=== PATIENT | female | born 1950 | race Asian ===

== ENCOUNTER → 2016-07-21 | Outpatient (CLI) | payer MEDICARE, MEDICAID ==
[~2016-07-21] MED LIST: PRD10T PO; PRD20T PO
--- NOTE | 2016-07-25 09:23 | Diagnostic Imaging Report ---
Bilateral screening mammogram The current study was also evaluated with a Computer Aided Detection (CAD) system. Indication: Screening. No current complaints stated on the questionnaire. COMPARISON: 04/28/15 FINDINGS: The breasts are composed of heterogeneously dense parenchyma which may decrease mammographic sensitivity. Biopsy clip is seen in the right breast with adjacent stable calcification which could be dystrophic at the site of biopsy changes. The left breast appears stable. IMPRESSION: Stable mammographic findings. ACR BI-RADS Category 2: Benign findings. Result letter will be mailed to the patient. Note: At least 10% of breast cancer is not imaged by mammography. Dictated by: Dictated on workstation # [id number]
== END ==
LOC: RAD 09:41
PROVIDERS: ATTEND Nurse Practitioner Family
DX: Z12.31 Encounter for screening mammogram for malignant neoplasm of breast (principal)

== ENCOUNTER 2017-06-25 05:52 | Outpatient (CLI) | payer MEDICARE, MEDICAID ==
[~2017-06-25] VITALS: Ht 152.4 cm; Wt 60.8 kg
== END 2017-06-25 11:56 ==
LOC: PREOP 05:52
PROVIDERS: ATTEND Surgery
DX: Z01.818 Encounter for other preprocedural examination (principal); Z12.11 Encounter for screening for malignant neoplasm of colon

== ENCOUNTER 2017-06-29 11:58 | Day surgery (SDC) | payer MEDICARE, MEDICAID ==
[~2017-06-29] VITALS: Ht 152.4 cm; Wt 60.8 kg
[2017-06-29] MEDS ORDERED: NS IV 500 ML 500 ML IV PRN (12:03)
--- OUTSIDE RECORDS SUMMARY | 2017-06-29 12:04 | XMS REPORT | Continuity of Care Document ---
Author Author [facility] Address Unknown Phone Unavailable Allergies Active Description Code Type Severity Reaction Onset Reported/Identified Relationship to Patient Clinical Status Yes No Known Drug Allergies [id number] Drug Allergy Unknown N/A 06/25/2017 Medications There is no data. Problems Date Dx Coded Attending Type Code Diagnosis Diagnosed By 06/27/2008 723.1 PAIN NECK 06/27/2008 723.1 PAIN NECK 06/27/2008 723.1 PAIN NECK 06/27/2008 723.1 PAIN NECK 06/27/2008 FISH JENKINS MD 723.1 PAIN NECK 06/27/2008 TERRI DICKEY APRN N 723.1 PAIN NECK 06/27/2008 ZOHREH REID DOA K 723.1 PAIN NECK 06/27/2008 ZOHREH REID DOA K 723.1 PAIN NECK 06/27/2008 FISH JENKINS MD 723.1 PAIN NECK 06/27/2008 TAMMIE ESTEVEZ APRN 723.1 PAIN NECK 06/27/2008 REID DO SKYE K 723.1 PAIN NECK 06/27/2008 TORO MCNEIL, CLAUDIO L 723.1 PAIN NECK 06/27/2008 TORO MCNEIL, CLAUDIO L 723.1 PAIN NECK 06/27/2008 INO SEGAL APRN 723.1 PAIN NECK 06/27/2008 MADL SOCCER BALL ASSEMBLER, CLAUDIO L 723.1 PAIN NECK 06/27/2008 MADL SOCCER BALL ASSEMBLER, CLAUDIO L 723.1 PAIN NECK 06/27/2008 MADL SOCCER BALL ASSEMBLER, CLAUDIO L 723.1 PAIN NECK 06/27/2008 MADL SOCCER BALL ASSEMBLER, CLAUDIO L 723.1 PAIN NECK 09/15/2008 692.9 CONTACT DERMATITIS 09/15/2008 692.9 CONTACT DERMATITIS 09/15/2008 692.9 CONTACT DERMATITIS 09/15/2008 692.9 CONTACT DERMATITIS 09/15/2008 FISH JENKINS MD 692.9 CONTACT DERMATITIS 09/15/2008 WILLA HINOJOSA SOCCER BALL ASSEMBLER, TERRI N 692.9 CONTACT DERMATITIS 09/15/2008 REID DO, SKYE K 692.9 CONTACT DERMATITIS 09/15/2008 REID DO, SKYE K 692.9 CONTACT DERMATITIS 09/15/2008 FISH JENKINS MD 692.9 CONTACT DERMATITIS 09/15/2008 ZENAIDA SOCCER BALL ASSEMBLER, TAMMIE A 692.9 CONTACT DERMATITIS 09/15/2008 REID DO, SKYE K 692.9 CONTACT DERMATITIS 09/15/2008 MADL SOCCER BALL ASSEMBLER, CLAUDIO L 692.9 CONTACT DERMATITIS 09/15/2008 MADL SOCCER BALL ASSEMBLER, CLAUDIO L 692.9 CONTACT DERMATITIS 09/15/2008 PHILIPP SOCCER BALL ASSEMBLER, INO T 692.9 CONTACT DERMATITIS 09/15/2008 MADL SOCCER BALL ASSEMBLER, CLAUDIO L 692.9 CONTACT DERMATITIS 09/15/2008 MADL SOCCER BALL ASSEMBLER, CLAUDIO L 692.9 CONTACT DERMATITIS 09/15/2008 MADL SOCCER BALL ASSEMBLER, CLAUDIO L 692.9 CONTACT DERMATITIS 09/15/2008 MADL SOCCER BALL ASSEMBLER, CLAUDIO L 692.9 CONTACT DERMATITIS 09/21/2008 272.1 HYPERLIPOPROTEINEMIA TYPE IV 09/21/2008 272.4 HYPERLIPIDEMIA HYPERLIPOPROTEINEMIAS (Old Classification) 09/21/2008 272.1 HYPERLIPOPROTEINEMIA TYPE IV 09/21/2008 272.4 HYPERLIPIDEMIA HYPERLIPOPROTEINEMIAS (Old Classification) 09/21/2008 272.1 HYPERLIPOPROTEINEMIA TYPE IV 09/21/2008 272.4 HYPERLIPIDEMIA HYPERLIPOPROTEINEMIAS (Old Classification) 09/21/2008 272.1 HYPERLIPOPROTEINEMIA TYPE IV 09/21/2008 272.4 HYPERLIPIDEMIA HYPERLIPOPROTEINEMIAS (Old Classification) 09/21/2008 FISH JENKINS MD 272.1 HYPERLIPOPROTEINEMIA TYPE IV 09/21/2008 FISH JENKINS MD 272.4 HYPERLIPIDEMIA 09/21/2008 TERRI DICKEY APRN N 272.1 HYPERLIPOPROTEINEMIA TYPE IV 09/21/2008 TERRI DICKEY APRN N 272.4 HYPERLIPIDEMIA 09/21/2008 REID DO, SKYE K 272.1 HYPERLIPOPROTEINEMIA TYPE IV 09/21/2008 REID DO, SKYE K 272.4 HYPERLIPIDEMIA 09/21/2008 REID DO, SKYE K 272.1 HYPERLIPOPROTEINEMIA TYPE IV 09/21/2008 RIED DO, SKYE K 272.4 HYPERLIPIDEMIA 09/21/2008 FISH JENKINS MD 272.1 HYPERLIPOPROTEINEMIA TYPE IV 09/21/2008 FISH JENKINS MD 272.4 HYPERLIPIDEMIA 09/21/2008 ZENAIDA SOCCER BALL ASSEMBLER, TAMMIE A 272.1 HYPERLIPOPROTEINEMIA TYPE IV 09/21/2008 ZENAIDA SOCCER BALL ASSEMBLER, TAMMIE A 272.4 HYPERLIPIDEMIA 09/21/2008 REID DO, SKYE K 272.1 HYPERLIPOPROTEINEMIA TYPE IV 09/21/2008 REID DO, SKYE K 272.4 HYPERLIPIDEMIA 09/21/2008 MADL SOCCER BALL ASSEMBLER, CLAUDIO L 272.1 HYPERLIPOPROTEINEMIA TYPE IV 09/21/2008 MADL SOCCER BALL ASSEMBLER, CLAUDIO L 272.4 HYPERLIPIDEMIA 09/21/2008 MADL SOCCER BALL ASSEMBLER, CLAUDIO L 272.1 HYPERLIPOPROTEINEMIA TYPE IV 09/21/2008 MADL SOCCER BALL ASSEMBLER, CLAUDIO L 272.4 HYPERLIPIDEMIA 09/21/2008 PHILIPP MCNEIL INO T 272.1 HYPERLIPOPROTEINEMIA TYPE IV 09/21/2008 PHILIPP MCNEIL INO T 272.4 HYPERLIPIDEMIA 09/21/2008 MADL SOCCER BALL ASSEMBLER, CLAUDIO L 272.1 HYPERLIPOPROTEINEMIA TYPE IV 09/21/2008 MADL SOCCER BALL ASSEMBLER, CLAUDIO L 272.4 HYPERLIPIDEMIA 09/21/2008 MADL SOCCER BALL ASSEMBLER, CLADUIO L 272.1 HYPERLIPOPROTEINEMIA TYPE IV 09/21/2008 MADL SOCCER BALL ASSEMBLER, CLAUDIO L 272.4 HYPERLIPIDEMIA 09/21/2008 MADL SOCCER BALL ASSEMBLER, CLAUDIO L 272.1 HYPERLIPOPROTEINEMIA TYPE IV 09/21/2008 MADL SOCCER BALL ASSEMBLER, CLAUDIO L 272.4 HYPERLIPIDEMIA 09/21/2008 MADL SOCCER BALL ASSEMBLER, CLAUDIO L 272.1 HYPERLIPOPROTEINEMIA TYPE IV 09/21/2008 MADL SOCCER BALL ASSEMBLER, CLAUDIO L 272.4 HYPERLIPIDEMIA 03/08/2009 536.8 DYSPEPSIA AND OTHER SPECIFIED DISORDERS OF FUNCTION OF STOMACH 03/08/2009 536.8 DYSPEPSIA AND OTHER SPECIFIED DISORDERS OF FUNCTION OF STOMACH 03/08/2009 536.8 DYSPEPSIA AND OTHER SPECIFIED DISORDERS OF FUNCTION OF STOMACH 03/08/2009 536.8 DYSPEPSIA AND OTHER SPECIFIED DISORDERS OF FUNCTION OF STOMACH 03/08/2009 FISH JENKINS MD 536.8 DYSPEPSIA AND OTHER SPECIFIED DISORDERS OF FUNCTION OF STOMACH 03/08/2009 CROUCHTERRI HALE APRN 536.8 DYSPEPSIA AND OTHER SPECIFIED DISORDERS OF FUNCTION OF STOMACH 03/08/2009 REID DO SKYE K 536.8 DYSPEPSIA AND OTHER SPECIFIED DISORDERS OF FUNCTION OF STOMACH 03/08/2009 REID DO SKYE K 536.8 DYSPEPSIA AND OTHER SPECIFIED DISORDERS OF FUNCTION OF STOMACH 03/08/2009 FISH JENKINS MD 536.8 DYSPEPSIA AND OTHER SPECIFIED DISORDERS OF FUNCTION OF STOMACH 03/08/2009 TAMMIE ESTEVEZ APRN A 536.8 DYSPEPSIA AND OTHER SPECIFIED DISORDERS OF FUNCTION OF STOMACH 03/08/2009 ZOHREH REID DOA K 536.8 DYSPEPSIA AND OTHER SPECIFIED DISORDERS OF FUNCTION OF STOMACH 03/08/2009 MADL SOCCER BALL ASSEMBLER, CLAUDIO L 536.8 DYSPEPSIA AND OTHER SPECIFIED DISORDERS OF FUNCTION OF STOMACH 03/08/2009 MADL SOCCER BALL ASSEMBLER, CLAUDIO L 536.8 DYSPEPSIA AND OTHER SPECIFIED DISORDERS OF FUNCTION OF STOMACH 03/08/2009 INO SEGAL APRN 536.8 DYSPEPSIA AND OTHER SPECIFIED DISORDERS OF FUNCTION OF STOMACH 03/08/2009 MADL SOCCER BALL ASSEMBLER, CLAUDIO L 536.8 DYSPEPSIA AND OTHER SPECIFIED DISORDERS OF FUNCTION OF STOMACH 03/08/2009 MADL SOCCER BALL ASSEMBLER, CLAUDIO L 536.8 DYSPEPSIA AND OTHER SPECIFIED DISORDERS OF FUNCTION OF STOMACH 03/08/2009 MADL SOCCER BALL ASSEMBLER, CLAUDIO L 536.8 DYSPEPSIA AND OTHER SPECIFIED DISORDERS OF FUNCTION OF STOMACH 03/08/2009 MADL SOCCER BALL ASSEMBLER, CLAUDIO L 536.8 DYSPEPSIA AND OTHER SPECIFIED DISORDERS OF FUNCTION OF STOMACH 04/06/2009 783.1 recent weight gain of lbs 04/06/2009 783.1 recent weight gain of lbs 04/06/2009 783.1 recent weight gain of lbs 04/06/2009 783.1 recent weight gain of lbs 04/06/2009 FISH JENKINS MD 783.1 recent weight gain of lbs 04/06/2009 TERRI DICKEY APRN N 783.1 recent weight gain of lbs 04/06/2009 REID DO, SKYE K 783.1 recent weight gain of lbs 04/06/2009 REID DO, SKYE K 783.1 recent weight gain of lbs 04/06/2009 FISH JENKINS MD 783.1 recent weight gain of lbs 04/06/2009 TAMMIE ESTEVEZ APRN A 783.1 recent weight gain of lbs 04/06/2009 REID DO, SKYE K 783.1 recent weight gain of lbs 04/06/2009 MADL SOCCER BALL ASSEMBLER, CLAUDIO L 783.1 recent weight gain of lbs 04/06/2009 MADL SOCCER BALL ASSEMBLER, CLAUDIO L 783.1 recent weight gain of lbs 04/06/2009 INO SEGAL APRN 783.1 recent weight gain of lbs 04/06/2009 MADL SOCCER BALL ASSEMBLER, CLAUDIO L 783.1 recent weight gain of lbs 04/06/2009 MADL SOCCER BALL ASSEMBLER, CLAUDIO L 783.1 recent weight gain of lbs 04/06/2009 MADL SOCCER BALL ASSEMBLER, CLAUDIO L 783.1 recent weight gain of lbs 04/06/2009 MADL SOCCER BALL ASSEMBLER, CLAUDIO L 783.1 recent weight gain of lbs 07/06/2009 729.5 PAIN IN LIMB 07/06/2009 729.5 PAIN IN LIMB 07/06/2009 729.5 PAIN IN LIMB 07/06/2009 729.5 PAIN IN LIMB 07/06/2009 FISH JENKINS MD 729.5 PAIN IN LIMB 07/06/2009 TERRI DICKEY APRN N 729.5 PAIN IN LIMB 07/06/2009 REID DO, SKYE K 729.5 PAIN IN LIMB 07/06/2009 REID DO, SKYE K 729.5 PAIN IN LIMB 07/06/2009 FISH JENKINS MD 729.5 PAIN IN LIMB 07/06/2009 TAMMIE ESTEVEZ APRN 729.5 PAIN IN LIMB 07/06/2009 REID DO, SKYE K 729.5 PAIN IN LIMB 07/06/2009 MADL SOCCER BALL ASSEMBLER, CLAUDIO L 729.5 PAIN IN LIMB 07/06/2009 MADL SOCCER BALL ASSEMBLER, CLAUDIO L 729.5 PAIN IN LIMB 07/06/2009 PHILIPP SOCCER BALL ASSEMBLER, INO T 729.5 PAIN IN LIMB 07/06/2009 MADL SOCCER BALL ASSEMBLER, CLAUDIO L 729.5 PAIN IN LIMB 07/06/2009 MADL SOCCER BALL ASSEMBLER, CLAUDIO L 729.5 PAIN IN LIMB 07/06/2009 MADL SOCCER BALL ASSEMBLER, CLAUDIO L 729.5 PAIN IN LIMB 07/06/2009 MADL SOCCER BALL ASSEMBLER, CLAUDIO L 729.5 PAIN IN LIMB 11/04/2009 477.0 ALLERGIC RHINITIS, DUE TO POLLEN 11/04/2009 786.2 COUGH 11/04/2009 477.0 ALLERGIC RHINITIS - POLLEN 11/04/2009 786.2 COUGH 11/04/2009 477.0 ALLERGIC RHINITIS - POLLEN 11/04/2009 786.2 COUGH 11/04/2009 477.0 ALLERGIC RHINITIS - POLLEN 11/04/2009 786.2 COUGH 11/04/2009 FISH JENKINS MD 477.0 ALLERGIC RHINITIS - POLLEN 11/04/2009 FISH JENKINS MD 786.2 COUGH 11/04/2009 CORUCH ASHISH SOCCER BALL ASSEMBLER, TERRI N 477.0 ALLERGIC RHINITIS - POLLEN 11/04/2009 CROUCH GIGIERO SOCCER BALL ASSEMBLER, TERRI N 786.2 COUGH 11/04/2009 REID DO, SKYE K 477.0 ALLERGIC RHINITIS - POLLEN 11/04/2009 REID DO, SKYE K 786.2 COUGH 11/04/2009 REID DO, SKYE K 477.0 ALLERGIC RHINITIS - POLLEN 11/04/2009 REID DO, SKYE K 786.2 COUGH 11/04/2009 FISH JENKINS MD 477.0 ALLERGIC RHINITIS - POLLEN 11/04/2009 FISH JENKINS MD 786.2 COUGH 11/04/2009 ZENAIDA EWA TAMMIE A 477.0 ALLERGIC RHINITIS - POLLEN 11/04/2009 ZENAIDA SOCCER BALL ASSEMBLER, TAMMIE A 786.2 COUGH 11/04/2009 REID DO, SKYE K 477.0 ALLERGIC RHINITIS - POLLEN 11/04/2009 REID DO, SKYE K 786.2 COUGH 11/04/2009 MADL SOCCER BALL ASSEMBLER, CLAUDIO L 477.0 ALLERGIC RHINITIS - POLLEN 11/04/2009 MADL SOCCER BALL ASSEMBLER, CLAUDIO L 786.2 COUGH 11/04/2009 MADL SOCCER BALL ASSEMBLER, CLAUDIO L 477.0 ALLERGIC RHINITIS - POLLEN 11/04/2009 MADL SOCCER BALL ASSEMBLER, CLAUDIO L 786.2 COUGH 11/04/2009 PHILIPP SOCCER BALL ASSEMBLER, INO T 477.0 ALLERGIC RHINITIS - POLLEN 11/04/2009 PHILIPP SOCCER BALL ASSEMBLER, INO T 786.2 COUGH 11/04/2009 MADL SOCCER BALL ASSEMBLER, CLAUDIO L 477.0 ALLERGIC RHINITIS - POLLEN 11/04/2009 MADL SOCCER BALL ASSEMBLER, CLAUDIO L 786.2 COUGH 11/04/2009 MADL SOCCER BALL ASSEMBLER, CLAUDIO L 477.0 ALLERGIC RHINITIS - POLLEN 11/04/2009 MADL SOCCER BALL ASSEMBLER, CLAUDIO L 786.2 COUGH 11/04/2009 MADL SOCCER BALL ASSEMBLER, CLAUDIO L 477.0 ALLERGIC RHINITIS - POLLEN 11/04/2009 MADL SOCCER BALL ASSEMBLER, CLAUDIO L 786.2 COUGH 11/04/2009 MADL SOCCER BALL ASSEMBLER, CLAUDIO L 477.0 ALLERGIC RHINITIS - POLLEN 11/04/2009 MADL SOCCER BALL ASSEMBLER, CLAUDIO L 786.2 COUGH 06/28/2010 780.79 MALAISE AND FATIGUE 06/28/2010 780.79 MALAISE AND FATIGUE 06/28/2010 780.79 MALAISE AND FATIGUE 06/28/2010 780.79 MALAISE AND FATIGUE 06/28/2010 FISH JENKINS MD 780.79 MALAISE AND FATIGUE 06/28/2010 TERRI DICKEY APRN 780.79 MALAISE AND FATIGUE 06/28/2010 SKYE REID DO 780.79 MALAISE AND FATIGUE 06/28/2010 SKYE REID DO 780.79 MALAISE AND FATIGUE 06/28/2010 FISH JENKINS MD 780.79 MALAISE AND FATIGUE 06/28/2010 TAMMIE ESTEVEZ APRN 780.79 MALAISE AND FATIGUE 06/28/2010 SKYE REID DO 780.79 MALAISE AND FATIGUE 06/28/2010 MADL SOCCER BALL ASSEMBLER, CLAUDIO L 780.79 MALAISE AND FATIGUE 06/28/2010 CAMERONL SOCCER BALL ASSEMBLER, CLAUDIO L 780.79 MALAISE AND FATIGUE 06/28/2010 PHILIPP SOCCER BALL ASSEMBLER, INO T 780.79 MALAISE AND FATIGUE 06/28/2010 MADL SOCCER BALL ASSEMBLER, CLAUDIO L 780.79 MALAISE AND FATIGUE 06/28/2010 CAMERONL SOCCER BALL ASSEMBLER, CLAUDIO L 780.79 MALAISE AND FATIGUE 06/28/2010 MADL SOCCER BALL ASSEMBLER, CLAUDIO L 780.79 MALAISE AND FATIGUE 06/28/2010 CAMERONL SOCCER BALL ASSEMBLER, CLAUDIO L 780.79 MALAISE AND FATIGUE 07/22/2010 244.9 UNSPECIFIED ACQUIRED HYPOTHYROIDISM 07/22/2010 477.9 RHINITIS 07/22/2010 244.9 UNSPECIFIED ACQUIRED HYPOTHYROIDISM 07/22/2010 477.9 RHINITIS 07/22/2010 244.9 UNSPECIFIED ACQUIRED HYPOTHYROIDISM 07/22/2010 477.9 RHINITIS 07/22/2010 244.9 UNSPECIFIED ACQUIRED HYPOTHYROIDISM 07/22/2010 477.9 RHINITIS 07/22/2010 FISH JENKINS MD 244.9 UNSPECIFIED ACQUIRED HYPOTHYROIDISM 07/22/2010 FISH JENKINS MD 477.9 RHINITIS 07/22/2010 WILLA HINOJOSA SOCCER BALL ASSEMBLER, TERRI N 244.9 UNSPECIFIED ACQUIRED HYPOTHYROIDISM 07/22/2010 WILLA HINOJOSA APRN, TERRI N 477.9 RHINITIS 07/22/2010 REID DO, SKYE K 244.9 UNSPECIFIED ACQUIRED HYPOTHYROIDISM 07/22/2010 REID DO, SKYE K 477.9 RHINITIS 07/22/2010 REID DO, SKYE K 244.9 UNSPECIFIED ACQUIRED HYPOTHYROIDISM 07/22/2010 REID DO, SKYE K 477.9 RHINITIS 07/22/2010 FISH JENKINS MD 244.9 UNSPECIFIED ACQUIRED HYPOTHYROIDISM 07/22/2010 FISH JENKINS MD 477.9 RHINITIS 07/22/2010 ZENAIDA SOCCER BALL ASSEMBLEREVELINETAMMIE A 244.9 UNSPECIFIED ACQUIRED HYPOTHYROIDISM 07/22/2010 ZENAIDA SOCCER BALL ASSEMBLER, TAMMIE A 477.9 RHINITIS 07/22/2010 REID DO, SKYE K 244.9 UNSPECIFIED ACQUIRED HYPOTHYROIDISM 07/22/2010 REID DO, SKYE K 477.9 RHINITIS 07/22/2010 MADL SOCCER BALL ASSEMBLER, CLAUDIO L 244.9 UNSPECIFIED ACQUIRED HYPOTHYROIDISM 07/22/2010 MADL SOCCER BALL ASSEMBLER, CLAUDIO L 477.9 RHINITIS 07/22/2010 MADL SOCCER BALL ASSEMBLER, CLAUDIO L 244.9 UNSPECIFIED ACQUIRED HYPOTHYROIDISM 07/22/2010 MADL SOCCER BALL ASSEMBLER, CLAUDIO L 477.9 RHINITIS 07/22/2010 PHILIPP SOCCER BALL ASSEMBLER, INO T 244.9 UNSPECIFIED ACQUIRED HYPOTHYROIDISM 07/22/2010 PHILIPP SOCCER BALL ASSEMBLER, INO T 477.9 RHINITIS 07/22/2010 MADL SOCCER BALL ASSEMBLER, CLAUDIO L 244.9 UNSPECIFIED ACQUIRED HYPOTHYROIDISM 07/22/2010 MADL SOCCER BALL ASSEMBLER, CLAUDIO L 477.9 RHINITIS 07/22/2010 MADL SOCCER BALL ASSEMBLER, CLAUDIO L 244.9 UNSPECIFIED ACQUIRED HYPOTHYROIDISM 07/22/2010 MADL SOCCER BALL ASSEMBLER, CLAUDIO L 477.9 RHINITIS 07/22/2010 MADL SOCCER BALL ASSEMBLER, CLAUDIO L 244.9 UNSPECIFIED ACQUIRED HYPOTHYROIDISM 07/22/2010 MADL SOCCER BALL ASSEMBLER, CLAUDIO L 477.9 RHINITIS 07/22/2010 MADL SOCCER BALL ASSEMBLER, CLAUDIO L 244.9 UNSPECIFIED ACQUIRED HYPOTHYROIDISM 07/22/2010 MADL SOCCER BALL ASSEMBLER, CLAUDIO L 477.9 RHINITIS 01/10/2011 530.81 GERD 01/10/2011 788.1 DYSURIA 01/10/2011 V68.1 ISSUE OF REPEAT PRESCRIPTIONS 01/10/2011 530.81 GERD 01/10/2011 788.1 DYSURIA 01/10/2011 V68.1 ISSUE OF REPEAT PRESCRIPTIONS 01/10/2011 530.81 GERD 01/10/2011 788.1 DYSURIA 01/10/2011 V68.1 ISSUE OF REPEAT PRESCRIPTIONS 01/10/2011 530.81 GERD 01/10/2011 788.1 DYSURIA 01/10/2011 V68.1 ISSUE OF REPEAT PRESCRIPTIONS 01/10/2011 FISH JENKINS MD 530.81 GERD 01/10/2011 FISH JENKINS MD 788.1 DYSURIA 01/10/2011 FISH JENKINS MD V68.1 ISSUE OF REPEAT PRESCRIPTIONS 01/10/2011 WILLA HINOJOSA APRN TERRI N 530.81 GERD 01/10/2011 WILLA HINOJOSA SOCCER BALL ASSEMBLER, TERRI N 788.1 DYSURIA 01/10/2011 WILLA HINOJOSA APRN, TERRI N V68.1 ISSUE OF REPEAT PRESCRIPTIONS 01/10/2011 REID DO, SKYE K 530.81 GERD 01/10/2011 REID DO, SKYE K 788.1 DYSURIA 01/10/2011 REID DO, SKYE K V68.1 ISSUE OF REPEAT PRESCRIPTIONS 01/10/2011 REID DO, SKYE K 530.81 GERD 01/10/2011 REID DO, SKYE K 788.1 DYSURIA 01/10/2011 REID DO, SKYE K V68.1 ISSUE OF REPEAT PRESCRIPTIONS 01/10/2011 FISH JENKINS MD 530.81 GERD 01/10/2011 FISH JENKINS MD 788.1 DYSURIA 01/10/2011 FISH JENKINS MD V68.1 ISSUE OF REPEAT PRESCRIPTIONS 01/10/2011 ZENAIDA SOCCER BALL ASSEMBLER, TAMMIE A 530.81 GERD 01/10/2011 ZENAIDA SOCCER BALL ASSEMBLER, TAMMIE A 788.1 DYSURIA 01/10/2011 ZENAIDA SOCCER BALL ASSEMBLER, TAMMIE A V68.1 ISSUE OF REPEAT PRESCRIPTIONS 01/10/2011 REID DO, SKYE K 530.81 GERD 01/10/2011 REID DO, SKYE K 788.1 DYSURIA 01/10/2011 REID DO, SKYE K V68.1 ISSUE OF REPEAT PRESCRIPTIONS 01/10/2011 MADL SOCCER BALL ASSEMBLER, CLAUDIO L 530.81 GERD 01/10/2011 MADL SOCCER BALL ASSEMBLER, CLAUDIO L 788.1 DYSURIA 01/10/2011 MADL SOCCER BALL ASSEMBLER, CLAUDIO L V68.1 ISSUE OF REPEAT PRESCRIPTIONS 01/10/2011 MADL SOCCER BALL ASSEMBLER, CLAUDIO L 530.81 GERD 01/10/2011 MADL SOCCER BALL ASSEMBLER, CLAUDIO L 788.1 DYSURIA 01/10/2011 MADL SOCCER BALL ASSEMBLER, CLAUDIO L V68.1 ISSUE OF REPEAT PRESCRIPTIONS 01/10/2011 INO SEGAL APRN 530.81 GERD 01/10/2011 INO SEGAL APRN 788.1 DYSURIA 01/10/2011 INO SEGAL APRN V68.1 ISSUE OF REPEAT PRESCRIPTIONS 01/10/2011 MADL SOCCER BALL ASSEMBLER, CLAUDIO L 530.81 GERD 01/10/2011 MADL SOCCER BALL ASSEMBLER, CLAUDIO L 788.1 DYSURIA 01/10/2011 MADL SOCCER BALL ASSEMBLER, CLAUDIO L V68.1 ISSUE OF REPEAT PRESCRIPTIONS 01/10/2011 MADL SOCCER BALL ASSEMBLER, CLAUDIO L 530.81 GERD 01/10/2011 MADL SOCCER BALL ASSEMBLER, CLAUDIO L 788.1 DYSURIA 01/10/2011 MADL SOCCER BALL ASSEMBLER, CLAUDIO L V68.1 ISSUE OF REPEAT PRESCRIPTIONS 01/10/2011 MADL SOCCER BALL ASSEMBLER, CLAUDIO L 530.81 GERD 01/10/2011 MADL SOCCER BALL ASSEMBLER, CLAUDIO L 788.1 DYSURIA 01/10/2011 MADL SOCCER BALL ASSEMBLER, CLAUDIO L V68.1 ISSUE OF REPEAT PRESCRIPTIONS 01/10/2011 MADL SOCCER BALL ASSEMBLER, CLAUDIO L 530.81 GERD 01/10/2011 MADL SOCCER BALL ASSEMBLER, CLAUDIO L 788.1 DYSURIA 01/10/2011 MADL SOCCER BALL ASSEMBLER, CLAUDIO L V68.1 ISSUE OF REPEAT PRESCRIPTIONS 04/25/2011 458.0 ORTHOSTATIC HYPOTENSION 04/25/2011 708.0 ALLERGIC URTICARIA 04/25/2011 458.0 ORTHOSTATIC HYPOTENSION 04/25/2011 708.0 ALLERGIC URTICARIA 04/25/2011 458.0 ORTHOSTATIC HYPOTENSION 04/25/2011 708.0 ALLERGIC URTICARIA 04/25/2011 458.0 ORTHOSTATIC HYPOTENSION 04/25/2011 708.0 ALLERGIC URTICARIA 04/25/2011 FISH JENKINS MD 458.0 ORTHOSTATIC HYPOTENSION 04/25/2011 FISH JENKINS MD 708.0 ALLERGIC URTICARIA 04/25/2011 CROUCH CASHERO SOCCER BALL ASSEMBLER, TERRI N 458.0 ORTHOSTATIC HYPOTENSION 04/25/2011 CROUCH CASHERO SOCCER BALL ASSEMBLER, TERRI N 708.0 ALLERGIC URTICARIA 04/25/2011 REID DO, SKYE K 458.0 ORTHOSTATIC HYPOTENSION 04/25/2011 REID DO, SKYE K 708.0 ALLERGIC URTICARIA 04/25/2011 REID DO, SKYE K 458.0 ORTHOSTATIC HYPOTENSION 04/25/2011 REID DO, SKYE K 708.0 ALLERGIC URTICARIA 04/25/2011 GREGORY MD, FISH M 458.0 ORTHOSTATIC HYPOTENSION 04/25/2011 GREGOYR ADEN, FISH M 708.0 ALLERGIC URTICARIA 04/25/2011 ZENAIDA SOCCER BALL ASSEMBLER, TAMMIE A 458.0 ORTHOSTATIC HYPOTENSION 04/25/2011 ZENAIDA SOCCER BALL ASSEMBLER, TAMMIE A 708.0 ALLERGIC URTICARIA 04/25/2011 REID DO, SKYE K 458.0 ORTHOSTATIC HYPOTENSION 04/25/2011 REID DO, SKYE K 708.0 ALLERGIC URTICARIA 04/25/2011 MADL SOCCER BALL ASSEMBLER, CLAUDIO L 458.0 ORTHOSTATIC HYPOTENSION 04/25/2011 MADL SOCCER BALL ASSEMBLER, CLAUDIO L 708.0 ALLERGIC URTICARIA 04/25/2011 MADL SOCCER BALL ASSEMBLER, CLAUDIO L 458.0 ORTHOSTATIC HYPOTENSION 04/25/2011 MADL SOCCER BALL ASSEMBLER, CLAUDIO L 708.0 ALLERGIC URTICARIA 04/25/2011 PHILIPP SOCCER BALL ASSEMBLER, INO T 458.0 ORTHOSTATIC HYPOTENSION 04/25/2011 PHILIPP SOCCER BALL ASSEMBLER, INO T 708.0 ALLERGIC URTICARIA 04/25/2011 MADL SOCCER BALL ASSEMBLER, CLAUDIO L 458.0 ORTHOSTATIC HYPOTENSION 04/25/2011 MADL SOCCER BALL ASSEMBLER, CLAUDIO L 708.0 ALLERGIC URTICARIA 04/25/2011 MADL SOCCER BALL ASSEMBLER, CLAUDIO L 458.0 ORTHOSTATIC HYPOTENSION 04/25/2011 MADL SOCCER BALL ASSEMBLER, CLAUDIO L 708.0 ALLERGIC URTICARIA 04/25/2011 MADL SOCCER BALL ASSEMBLER, CLAUDIO L 458.0 ORTHOSTATIC HYPOTENSION 04/25/2011 MADL SOCCER BALL ASSEMBLER, CLAUDIO L 708.0 ALLERGIC URTICARIA 04/25/2011 MADL SOCCER BALL ASSEMBLER, CLAUDIO L 458.0 ORTHOSTATIC HYPOTENSION 04/25/2011 MADL SOCCER BALL ASSEMBLER, CLAUDIO L 708.0 ALLERGIC URTICARIA 01/10/2012 719.45 PAIN IN JOINT INVOLVING PELVIC REGION AND THIGH 01/10/2012 728.85 SPASM OF MUSCLE 01/10/2012 782.3 EDEMA 01/10/2012 V18.0 FAMILY HISTORY OF DIABETES MELLITUS 01/10/2012 719.45 PAIN IN JOINT INVOLVING PELVIC REGION AND THIGH 01/10/2012 728.85 SPASM OF MUSCLE 01/10/2012 782.3 EDEMA 01/10/2012 V18.0 FAMILY HISTORY OF DIABETES MELLITUS 01/10/2012 719.45 PAIN IN JOINT INVOLVING PELVIC REGION AND THIGH 01/10/2012 728.85 SPASM OF MUSCLE 01/10/2012 782.3 EDEMA 01/10/2012 V18.0 FAMILY HISTORY OF DIABETES MELLITUS 01/10/2012 719.45 PAIN IN JOINT INVOLVING PELVIC REGION AND THIGH 01/10/2012 728.85 SPASM OF MUSCLE 01/10/2012 782.3 EDEMA 01/10/2012 V18.0 FAMILY HISTORY OF DIABETES MELLITUS 01/10/2012 FISH JENKINS MD 719.45 PAIN IN JOINT INVOLVING PELVIC REGION AND THIGH 01/10/2012 FISH JENKINS MD 728.85 SPASM OF MUSCLE 01/10/2012 FISH JENKINS MD 782.3 EDEMA 01/10/2012 FISH JENKINS MD V18.0 FAMILY HISTORY OF DIABETES MELLITUS 01/10/2012 CROUCHJENNIFER HNIOJOSA APRN, TERRI N 719.45 PAIN IN JOINT INVOLVING PELVIC REGION AND THIGH 01/10/2012 WILLA HINOJOSA APRN TERRI N 728.85 SPASM OF MUSCLE 01/10/2012 CROUCH GIGIMANJINDER MCNEIL, TERRI N 782.3 EDEMA 01/10/2012 CROUCH GIGIMANJINDER MCNEIL, TERRI N V18.0 FAMILY HISTORY OF DIABETES MELLITUS 01/10/2012 REID DO SKYE K 719.45 PAIN IN JOINT INVOLVING PELVIC REGION AND THIGH 01/10/2012 REID DO SKYE K 728.85 SPASM OF MUSCLE 01/10/2012 REID DO SKYE K 782.3 EDEMA 01/10/2012 REID DO SKYE K V18.0 FAMILY HISTORY OF DIABETES MELLITUS 01/10/2012 REID DO, SKYE K 719.45 PAIN IN JOINT INVOLVING PELVIC REGION AND THIGH 01/10/2012 REID DO, SKYE K 728.85 SPASM OF MUSCLE 01/10/2012 REID DO SKYE K 782.3 EDEMA 01/10/2012 REID DO SKYE K V18.0 FAMILY HISTORY OF DIABETES MELLITUS 01/10/2012 FISH JENKINS MD 719.45 PAIN IN JOINT INVOLVING PELVIC REGION AND THIGH 01/10/2012 FISH JENKINS MD 728.85 SPASM OF MUSCLE 01/10/2012 FISH JENKINS MD 782.3 EDEMA 01/10/2012 GREGORY ADEN, FISH Crespo V18.0 FAMILY HISTORY OF DIABETES MELLITUS 01/10/2012 ZENAIDA MCNEIL TAMMIE A 719.45 PAIN IN JOINT INVOLVING PELVIC REGION AND THIGH 01/10/2012 ZENAIDA NUGENTN, TAMMIE A 728.85 SPASM OF MUSCLE 01/10/2012 ZENAIDA MCNEIL, TAMMIE A 782.3 EDEMA 01/10/2012 ZENAIDA MCNEIL TAMMIE A V18.0 FAMILY HISTORY OF DIABETES MELLITUS 01/10/2012 REID DO SKYE K 719.45 PAIN IN JOINT INVOLVING PELVIC REGION AND THIGH 01/10/2012 REID DO SKYE K 728.85 SPASM OF MUSCLE 01/10/2012 REID DO SKYE K 782.3 EDEMA 01/10/2012 REID DO SKYE K V18.0 FAMILY HISTORY OF DIABETES MELLITUS 01/10/2012 TORO NUGENTFito CLAUDIO L 719.45 PAIN IN JOINT INVOLVING PELVIC REGION AND THIGH 01/10/2012 TORO NUGENTN, CLAUDIO L 728.85 SPASM OF MUSCLE 01/10/2012 TORO NUGENTN, CLAUDIO L 782.3 EDEMA 01/10/2012 TORO NUGENTN, CLAUDIO L V18.0 FAMILY HISTORY OF DIABETES MELLITUS 01/10/2012 TORO NUGENTN, CLAUDIO L 719.45 PAIN IN JOINT INVOLVING PELVIC REGION AND THIGH 01/10/2012 TORO SOCCER BALL ASSEMBLER, CLAUDIO L 728.85 SPASM OF MUSCLE 01/10/2012 TORO NUGENTN, CLAUDIO L 782.3 EDEMA 01/10/2012 TORO NUGENTN, CLAUDIO L V18.0 FAMILY HISTORY OF DIABETES MELLITUS 01/10/2012 INO SEGAL APRN 719.45 PAIN IN JOINT INVOLVING PELVIC REGION AND THIGH 01/10/2012 INO SEGAL APRN 728.85 SPASM OF MUSCLE 01/10/2012 INO SEGAL APRN 782.3 EDEMA 01/10/2012 INO SEGAL APRN V18.0 FAMILY HISTORY OF DIABETES MELLITUS 01/10/2012 OTRO RAY MCNEILWNYA L 719.45 PAIN IN JOINT INVOLVING PELVIC REGION AND THIGH 01/10/2012 DURGA ENGEL APRNNYA L 728.85 SPASM OF MUSCLE 01/10/2012 MADL SOCCER BALL ASSEMBLER, CLAUDIO L 782.3 EDEMA 01/10/2012 MADL SOCCER BALL ASSEMBLER, CLAUDIO L V18.0 FAMILY HISTORY OF DIABETES MELLITUS 01/10/2012 MADL SOCCER BALL ASSEMBLER, CLAUDIO L 719.45 PAIN IN JOINT INVOLVING PELVIC REGION AND THIGH 01/10/2012 MADL SOCCER BALL ASSEMBLER, CLAUDIO L 728.85 SPASM OF MUSCLE 01/10/2012 MADL SOCCER BALL ASSEMBLER, CLAUDIO L 782.3 EDEMA 01/10/2012 MADL SOCCER BALL ASSEMBLER, CLAUDIO L V18.0 FAMILY HISTORY OF DIABETES MELLITUS 01/10/2012 MADL SOCCER BALL ASSEMBLER, CLAUDIO L 719.45 PAIN IN JOINT INVOLVING PELVIC REGION AND THIGH 01/10/2012 MADL SOCCER BALL ASSEMBLER, CLAUDIO L 728.85 SPASM OF MUSCLE 01/10/2012 MADL SOCCER BALL ASSEMBLER, CLAUDIO L 782.3 EDEMA 01/10/2012 MADL SOCCER BALL ASSEMBLER, CLAUDIO L V18.0 FAMILY HISTORY OF DIABETES MELLITUS 01/10/2012 MADL SOCCER BALL ASSEMBLER, CLAUDIO L 719.45 PAIN IN JOINT INVOLVING PELVIC REGION AND THIGH 01/10/2012 MADL SOCCER BALL ASSEMBLER, CLAUDIO L 728.85 SPASM OF MUSCLE 01/10/2012 MADL SOCCER BALL ASSEMBLER, CLAUDIO L 782.3 EDEMA 01/10/2012 MADL SOCCER BALL ASSEMBLER, CLAUDIO L V18.0 FAMILY HISTORY OF DIABETES MELLITUS 03/22/2012 735.0 HALLUX VALGUS (ACQUIRED) 03/22/2012 735.4 HAMMER TOE ( ACQUIRED) 03/22/2012 735.0 HALLUX VALGUS (ACQUIRED) 03/22/2012 735.4 HAMMER TOE ( ACQUIRED) 03/22/2012 735.0 HALLUX VALGUS (ACQUIRED) 03/22/2012 735.4 HAMMER TOE ( ACQUIRED) 03/22/2012 735.0 HALLUX VALGUS (ACQUIRED) 03/22/2012 735.4 HAMMER TOE ( ACQUIRED) 03/22/2012 FISH JENKINS MD 735.0 HALLUX VALGUS (ACQUIRED) 03/22/2012 FISH JENKINS MD 735.4 HAMMER TOE (ACQUIRED) 03/22/2012 WILLA HINOJOSA SOCCER BALL ASSEMBLER, TERRI N 735.0 HALLUX VALGUS (ACQUIRED) 03/22/2012 CROUCH ASHISH EWA, TERRI N 735.4 HAMMER TOE (ACQUIRED) 03/22/2012 REID DO, SKYE K 735.0 HALLUX VALGUS (ACQUIRED) 03/22/2012 REID DO, SKYE K 735.4 HAMMER TOE (ACQUIRED) 03/22/2012 REID DO, SKYE K 735.0 HALLUX VALGUS (ACQUIRED) 03/22/2012 REID DO, SKYE K 735.4 HAMMER TOE (ACQUIRED) 03/22/2012 FISH JENKINS MD 735.0 HALLUX VALGUS (ACQUIRED) 03/22/2012 FISH JENKINS MD 735.4 HAMMER TOE (ACQUIRED) 03/22/2012 ZENAIDA MCNEIL, TAMMIE A 735.0 HALLUX VALGUS (ACQUIRED) 03/22/2012 EVELINE ESTEVEZ APRNIDI A 735.4 HAMMER TOE (ACQUIRED) 03/22/2012 REID DO, SKYE K 735.0 HALLUX VALGUS (ACQUIRED) 03/22/2012 REID DO, SKYE K 735.4 HAMMER TOE (ACQUIRED) 03/22/2012 TORO SOCCER BALL ASSEMBLER, CLAUDIO L 735.0 HALLUX VALGUS (ACQUIRED) 03/22/2012 MADFrancie SOCCER BALL ASSEMBLER, CLAUDIO L 735.4 HAMMER TOE (ACQUIRED) 03/22/2012 CAMERONL SOCCER BALL ASSEMBLER, CLAUDIO L 735.0 HALLUX VALGUS (ACQUIRED) 03/22/2012 TORO NUGENTN, CLAUDIO L 735.4 HAMMER TOE (ACQUIRED) 03/22/2012 INO SEGAL APRN 735.0 HALLUX VALGUS (ACQUIRED) 03/22/2012 INO SEGAL APRN 735.4 HAMMER TOE (ACQUIRED) 03/22/2012 TORO MCNEIL, CLAUDIO L 735.0 HALLUX VALGUS (ACQUIRED) 03/22/2012 TORO SOCCER BALL ASSEMBLER, CLAUDIO L 735.4 HAMMER TOE (ACQUIRED) 03/22/2012 MADFrancie SOCCER BALL ASSEMBLER, CLAUDIO L 735.0 HALLUX VALGUS (ACQUIRED) 03/22/2012 MADL SOCCER BALL ASSEMBLER, CLAUDIO L 735.4 HAMMER TOE (ACQUIRED) 03/22/2012 MADL SOCCER BALL ASSEMBLER, CLAUDIO L 735.0 HALLUX VALGUS (ACQUIRED) 03/22/2012 MADL SOCCER BALL ASSEMBLER, CLADUIO L 735.4 HAMMER TOE (ACQUIRED) 03/22/2012 MADL SOCCER BALL ASSEMBLER, CLAUDIO L 735.0 HALLUX VALGUS (ACQUIRED) 03/22/2012 MADL SOCCER BALL ASSEMBLER, CLAUDIO L 735.4 HAMMER TOE (ACQUIRED) 06/13/2012 380.10 OTITIS EXTERNA LEFT 06/13/2012 719.43 PAIN IN JOINT INVOLVING FOREARM 06/13/2012 380.10 OTITIS EXTERNA LEFT 06/13/2012 719.43 PAIN IN JOINT INVOLVING FOREARM 06/13/2012 380.10 OTITIS EXTERNA LEFT 06/13/2012 719.43 PAIN IN JOINT INVOLVING FOREARM 06/13/2012 380.10 OTITIS EXTERNA LEFT 06/13/2012 719.43 PAIN IN JOINT INVOLVING FOREARM 06/13/2012 FISH JENKINS MD 380.10 OTITIS EXTERNA LEFT 06/13/2012 FISH JENKINS MD 719.43 PAIN IN JOINT INVOLVING FOREARM 06/13/2012 TERRI DICKEY APRN N 380.10 OTITIS EXTERNA LEFT 06/13/2012 TERRI DICKEY APRN N 719.43 PAIN IN JOINT INVOLVING FOREARM 06/13/2012 ZOHREH REID DOA K 380.10 OTITIS EXTERNA LEFT 06/13/2012 SKYE REID DO K 719.43 PAIN IN JOINT INVOLVING FOREARM 06/13/2012 ZOHREH REID DOA K 380.10 OTITIS EXTERNA LEFT 06/13/2012 FRANKLIN ULRICH SKYE K 719.43 PAIN IN JOINT INVOLVING FOREARM 06/13/2012 FISH JENKINS MD 380.10 OTITIS EXTERNA LEFT 06/13/2012 FISH JENKINS MD 719.43 PAIN IN JOINT INVOLVING FOREARM 06/13/2012 TAMMIE ESTEVEZ APRN A 380.10 OTITIS EXTERNA LEFT 06/13/2012 TAMMIE ESTEVEZ APRN A 719.43 PAIN IN JOINT INVOLVING FOREARM 06/13/2012 REID ZOHREH ULRICHA K 380.10 OTITIS EXTERNA LEFT 06/13/2012 SKYE REID DO 719.43 PAIN IN JOINT INVOLVING FOREARM 06/13/2012 TORO MCNEIL, CLAUDIO L 380.10 OTITIS EXTERNA LEFT 06/13/2012 TORO MCNEIL CLAUDIO L 719.43 PAIN IN JOINT INVOLVING FOREARM 06/13/2012 TORO MCNEIL, CLAUDIO L 380.10 OTITIS EXTERNA LEFT 06/13/2012 TORO MCNEIL CLAUDIO L 719.43 PAIN IN JOINT INVOLVING FOREARM 06/13/2012 PHILIPP INO MCNEIL T 380.10 OTITIS EXTERNA LEFT 06/13/2012 PHILIPP EWA INO T 719.43 PAIN IN JOINT INVOLVING FOREARM 06/13/2012 TORO MCNEIL, CLAUDIO L 380.10 OTITIS EXTERNA LEFT 06/13/2012 TORO MCNEIL, CLAUDIO L 719.43 PAIN IN JOINT INVOLVING FOREARM 06/13/2012 TORO MCNEIL, CLAUDIO L 380.10 OTITIS EXTERNA LEFT 06/13/2012 TORO MCNEIL, CLAUDIO L 719.43 PAIN IN JOINT INVOLVING FOREARM 06/13/2012 TORO MCNEIL, CLAUDIO L 380.10 OTITIS EXTERNA LEFT 06/13/2012 TORO MCNEIL, CLAUDIO L 719.43 PAIN IN JOINT INVOLVING FOREARM 06/13/2012 TORO MCNEIL, CLAUDIO L 380.10 OTITIS EXTERNA LEFT 06/13/2012 TORO MCNEIL, CLAUDIO L 719.43 PAIN IN JOINT INVOLVING FOREARM 10/24/2012 715.00 OSTEOARTHRITIS GENERALIZED 10/24/2012 V76.12 Mammogram Screening 10/24/2012 715.00 OSTEOARTHRITIS GENERALIZED 10/24/2012 V76.12 Mammogram Screening 10/24/2012 715.00 OSTEOARTHRITIS GENERALIZED 10/24/2012 V76.12 Mammogram Screening 10/24/2012 FISH JENKINS MD 715.00 OSTEOARTHRITIS GENERALIZED 10/24/2012 FISH JENKINS MD V76.12 Mammogram Screening 10/24/2012 TERRI DICKEY APRN 715.00 OSTEOARTHRITIS GENERALIZED 10/24/2012 TERRI DICKEY APRN V76.12 Mammogram Screening 10/24/2012 SKYE REID DO 715.00 OSTEOARTHRITIS GENERALIZED 10/24/2012 REID DO, SKYE K V76.12 Mammogram Screening 10/24/2012 REID DO, SKYE K 715.00 OSTEOARTHRITIS GENERALIZED 10/24/2012 REID DO, SKYE K V76.12 Mammogram Screening 10/24/2012 GREGORY ADEN, FISH Crespo 715.00 OSTEOARTHRITIS GENERALIZED 10/24/2012 FISH JENKINS MD V76.12 Mammogram Screening 10/24/2012 ZENAIDA SOCCER BALL ASSEMBLER, TAMMIE A 715.00 OSTEOARTHRITIS GENERALIZED 10/24/2012 ZENAIDA SOCCER BALL ASSEMBLER, TAMMIE A V76.12 Mammogram Screening 10/24/2012 REID DO, SKYE K 715.00 OSTEOARTHRITIS GENERALIZED 10/24/2012 REID DO, SKYE K V76.12 Mammogram Screening 10/24/2012 MADL SOCCER BALL ASSEMBLER, CLAUDIO L 715.00 OSTEOARTHRITIS GENERALIZED 10/24/2012 MADL SOCCER BALL ASSEMBLER, CLAUDIO L V76.12 Mammogram Screening 10/24/2012 MADL SOCCER BALL ASSEMBLER, CLAUDIO L 715.00 OSTEOARTHRITIS GENERALIZED 10/24/2012 MADL SOCCER BALL ASSEMBLER, CLAUDIO L V76.12 Mammogram Screening 10/24/2012 PHILIPP MCNEIL, INO T 715.00 OSTEOARTHRITIS GENERALIZED 10/24/2012 PHILIPP MCNEIL INO T V76.12 Mammogram Screening 10/24/2012 MADL SOCCER BALL ASSEMBLER, CLAUDIO L 715.00 OSTEOARTHRITIS GENERALIZED 10/24/2012 MADL SOCCER BALL ASSEMBLER, CLAUDIO L V76.12 Mammogram Screening 10/24/2012 MADL SOCCER BALL ASSEMBLER, CLAUDIO L 715.00 OSTEOARTHRITIS GENERALIZED 10/24/2012 MADL SOCCER BALL ASSEMBLER, CLAUDIO L V76.12 Mammogram Screening 10/24/2012 MADL SOCCER BALL ASSEMBLER, CLAUDIO L 715.00 OSTEOARTHRITIS GENERALIZED 10/24/2012 MADL SOCCER BALL ASSEMBLER, CLAUDIO L V76.12 Mammogram Screening 10/24/2012 MADL SOCCER BALL ASSEMBLER, CLAUDIO L 715.00 OSTEOARTHRITIS GENERALIZED 10/24/2012 MADL SOCCER BALL ASSEMBLER, CLAUDIO L V76.12 Mammogram Screening 04/16/2013 FISH JENKINS MD 268.9 VITAMIN D DEFICIENCY 04/16/2013 FISH JENKINS MD 271.9 GLUCOSE INTOLERANCE 04/16/2013 FISH JENKINS MD 278.00 OVERWEIGHT 04/16/2013 FISH JENKINS MD V04.81 FLU SHOT 04/16/2013 CONNER DICKEY APRNCY N 268.9 VITAMIN D DEFICIENCY 04/16/2013 WILLA HINOJOSA APRN, TERRI N 271.9 GLUCOSE INTOLERANCE 04/16/2013 WILLA HINOJOSA APRN, TERRI N 278.00 OVERWEIGHT 04/16/2013 WILLA HINOJOSA APRN, TERRI N V04.81 FLU SHOT 04/16/2013 REID DO, SKYE K 268.9 VITAMIN D DEFICIENCY 04/16/2013 REID DO, SKYE K 271.9 GLUCOSE INTOLERANCE 04/16/2013 REID DO, SKYE K 278.00 OVERWEIGHT 04/16/2013 REID DO, SKYE K V04.81 FLU SHOT 04/16/2013 REID DO, SKYE K 268.9 VITAMIN D DEFICIENCY 04/16/2013 REID DO, SKYE K 271.9 GLUCOSE INTOLERANCE 04/16/2013 REID DO, SKYE K 278.00 OVERWEIGHT 04/16/2013 REID DO, SKYE K V04.81 FLU SHOT 04/16/2013 FISH JENKINS MD 268.9 VITAMIN D DEFICIENCY 04/16/2013 FISH JENKINS MD 271.9 GLUCOSE INTOLERANCE 04/16/2013 FISH JENKINS MD 278.00 OVERWEIGHT 04/16/2013 FISH JENKINS MD V04.81 FLU SHOT 04/16/2013 ZENAIDA MCNEIL, TAMMIE A 268.9 VITAMIN D DEFICIENCY 04/16/2013 ZENAIDA MCNEIL, TAMMIE A 271.9 GLUCOSE INTOLERANCE 04/16/2013 ZENAIDA MCNEIL, TAMMIE A 278.00 OVERWEIGHT 04/16/2013 ZENAIDA MCNEIL, TAMMIE A V04.81 FLU SHOT 04/16/2013 REID DO, SKYE K 268.9 VITAMIN D DEFICIENCY 04/16/2013 REID DO, SKYE K 271.9 GLUCOSE INTOLERANCE 04/16/2013 REID DO, SKYE K 278.00 OVERWEIGHT 04/16/2013 REID DO, SKYE K V04.81 FLU SHOT 04/16/2013 MADFrancie SOCCER BALL ASSEMBLER, CLAUDIO L 268.9 VITAMIN D DEFICIENCY 04/16/2013 MADFrancie SOCCER BALL ASSEMBLER, CLAUDIO L 271.9 GLUCOSE INTOLERANCE 04/16/2013 MADL SOCCER BALL ASSEMBLER, CLAUDIO L 278.00 OVERWEIGHT 04/16/2013 MADL SOCCER BALL ASSEMBLER, CLAUDIO L V04.81 FLU SHOT 04/16/2013 MADL SOCCER BALL ASSEMBLER, CLAUDIO L 268.9 VITAMIN D DEFICIENCY 04/16/2013 MADL SOCCER BALL ASSEMBLER, CLAUDIO L 271.9 GLUCOSE INTOLERANCE 04/16/2013 MADL SOCCER BALL ASSEMBLER, CLAUDIO L 278.00 OVERWEIGHT 04/16/2013 MADL SOCCER BALL ASSEMBLER, CLAUDIO L V04.81 FLU SHOT 04/16/2013 PHILIPP NUGENTN, INO T 268.9 VITAMIN D DEFICIENCY 04/16/2013 PHILIPP SOCCER BALL ASSEMBLER, INO T 271.9 GLUCOSE INTOLERANCE 04/16/2013 PHILIPP NUGENTN, INO T 278.00 OVERWEIGHT 04/16/2013 PHILIPP NUGENTN, INO T V04.81 FLU SHOT 04/16/2013 MADL SOCCER BALL ASSEMBLER, CLAUDIO L 268.9 VITAMIN D DEFICIENCY 04/16/2013 MADL SOCCER BALL ASSEMBLER, CLAUDIO L 271.9 GLUCOSE INTOLERANCE 04/16/2013 MADL SOCCER BALL ASSEMBLER, CLAUDIO L 278.00 OVERWEIGHT 04/16/2013 MADL SOCCER BALL ASSEMBLER, CLAUDIO L V04.81 FLU SHOT 04/16/2013 MADL SOCCER BALL ASSEMBLER, CLAUDIO L 268.9 VITAMIN D DEFICIENCY 04/16/2013 MADL SOCCER BALL ASSEMBLER, CLAUDIO L 271.9 GLUCOSE INTOLERANCE 04/16/2013 MADL SOCCER BALL ASSEMBLER, CLAUDIO L 278.00 OVERWEIGHT 04/16/2013 MADL SOCCER BALL ASSEMBLER, CLAUDIO L V04.81 FLU SHOT 04/16/2013 MADL SOCCER BALL ASSEMBLER, CLAUDIO L 268.9 VITAMIN D DEFICIENCY 04/16/2013 MADL SOCCER BALL ASSEMBLER, CLAUDIO L 271.9 GLUCOSE INTOLERANCE 04/16/2013 MADL SOCCER BALL ASSEMBLER, CLAUDIO L 278.00 OVERWEIGHT 04/16/2013 MADL SOCCER BALL ASSEMBLER, CLAUDIO L V04.81 FLU SHOT 04/16/2013 MADL SOCCER BALL ASSEMBLER, CLAUDIO L 268.9 VITAMIN D DEFICIENCY 04/16/2013 MADL SOCCER BALL ASSEMBLER, CLAUDIO L 271.9 GLUCOSE INTOLERANCE 04/16/2013 MADL SOCCER BALL ASSEMBLER, CLAUDIO L 278.00 OVERWEIGHT 04/16/2013 MADL SOCCER BALL ASSEMBLER, CLAUDIO L V04.81 FLU SHOT 04/02/2014 ZENAIDA NUGENTFito TAMMIE A V72.31 INTELLIGENCE CHIEF EXAM, ROUTINE 04/02/2014 ZENAIDA NUGENTTAMMIE Payton A V73.81 HPV SCREENING 04/02/2014 ZENAIDA NUGENTFito TAMMIE A V76.10 BREAST CANCER SCREENING 04/02/2014 ZENAIDA NUGENTFito TAMMIE A V76.2 CERVICAL CANCER SCREENING (PAP SMEAR) 04/02/2014 ZENAIDA NUGENTFito TAMMIE A V76.51 COLON CANCER SCREENING 04/02/2014 ZENAIDA NUGENTFito TAMMIE A V82.81 SPECIAL SCREENING FOR OSTEOPOROSIS 04/02/2014 REID ZOHREH ULRICHA K V72.31 INTELLIGENCE CHIEF EXAM, ROUTINE 04/02/2014 SKYE REID DO K V73.81 HPV SCREENING 04/02/2014 SKYE REID DO K V76.10 BREAST CANCER SCREENING 04/02/2014 REID ZOHREH ULRICHA K V76.2 CERVICAL CANCER SCREENING (PAP SMEAR) 04/02/2014 SKYE REID DO K V76.51 COLON CANCER SCREENING 04/02/2014 ZOHREH REID DOA K V82.81 SPECIAL SCREENING FOR OSTEOPOROSIS 04/02/2014 MADL SOCCER BALL ASSEMBLER, CLAUDIO L V72.31 INTELLIGENCE CHIEF EXAM, ROUTINE 04/02/2014 MADL SOCCER BALL ASSEMBLER CLAUDIO L V73.81 HPV SCREENING 04/02/2014 MADL SOCCER BALL ASSEMBLER, CLAUDIO L V76.10 BREAST CANCER SCREENING 04/02/2014 MADL SOCCER BALL ASSEMBLER, CLAUDIO L V76.2 CERVICAL CANCER SCREENING (PAP SMEAR) 04/02/2014 MADL SOCCER BALL ASSEMBLER, CLAUDIO L V76.51 COLON CANCER SCREENING 04/02/2014 MADL SOCCER BALL ASSEMBLER, CLAUDIO L V82.81 SPECIAL SCREENING FOR OSTEOPOROSIS 04/02/2014 MADL SOCCER BALL ASSEMBLER, CLAUDIO L V72.31 INTELLIGENCE CHIEF EXAM, ROUTINE 04/02/2014 MADL SOCCER BALL ASSEMBLER, CLAUDIO L V73.81 HPV SCREENING 04/02/2014 MADL SOCCER BALL ASSEMBLER, CLAUDIO L V76.10 BREAST CANCER SCREENING 04/02/2014 MADL SOCCER BALL ASSEMBLER, CLAUDIO L V76.2 CERVICAL CANCER SCREENING (PAP SMEAR) 04/02/2014 MADL SOCCER BALL ASSEMBLER, CLAUDIO L V76.51 COLON CANCER SCREENING 04/02/2014 MADL SOCCER BALL ASSEMBLER, CLAUDIO L V82.81 SPECIAL SCREENING FOR OSTEOPOROSIS 04/02/2014 INO SEGAL APRN V72.31 INTELLIGENCE CHIEF EXAM, ROUTINE 04/02/2014 INO SEGAL APRN V73.81 HPV SCREENING 04/02/2014 INO SEGAL APRN V76.10 BREAST CANCER SCREENING 04/02/2014 INO SEGAL APRN V76.2 CERVICAL CANCER SCREENING (PAP SMEAR) 04/02/2014 INO SEGAL APRN V76.51 COLON CANCER SCREENING 04/02/2014 INO SEGAL APRN V82.81 SPECIAL SCREENING FOR OSTEOPOROSIS 04/02/2014 MADL SOCCER BALL ASSEMBLER, CLAUDIO L V72.31 INTELLIGENCE CHIEF EXAM, ROUTINE 04/02/2014 MADL SOCCER BALL ASSEMBLER, CLAUDIO L V73.81 HPV SCREENING 04/02/2014 MADL SOCCER BALL ASSEMBLER, CLAUDIO L V76.10 BREAST CANCER SCREENING 04/02/2014 MADL SOCCER BALL ASSEMBLER, CLAUDIO L V76.2 CERVICAL CANCER SCREENING (PAP SMEAR) 04/02/2014 MAD SOCCER BALL ASSEMBLER, CLAUDIO L V76.51 COLON CANCER SCREENING 04/02/2014 MAD SOCCER BALL ASSEMBLER, CLAUDIO L V82.81 SPECIAL SCREENING FOR OSTEOPOROSIS 04/02/2014 MADL SOCCER BALL ASSEMBLER, CLAUDIO L V72.31 INTELLIGENCE CHIEF EXAM, ROUTINE 04/02/2014 MADL SOCCER BALL ASSEMBLER, CLAUDIO L V73.81 HPV SCREENING 04/02/2014 MADL SOCCER BALL ASSEMBLER, CLAUDIO L V76.10 BREAST CANCER SCREENING 04/02/2014 MADL SOCCER BALL ASSEMBLER, CLAUDIO L V76.2 CERVICAL CANCER SCREENING (PAP SMEAR) 04/02/2014 MADL SOCCER BALL ASSEMBLER, CLAUDIO L V76.51 COLON CANCER SCREENING 04/02/2014 MADL SOCCER BALL ASSEMBLER, CLAUDIO L V82.81 SPECIAL SCREENING FOR OSTEOPOROSIS 04/02/2014 MADL SOCCER BALL ASSEMBLER, CLAUDOI L V72.31 INTELLIGENCE CHIEF EXAM, ROUTINE 04/02/2014 MADL SOCCER BALL ASSEMBLER, CLAUDIO L V73.81 HPV SCREENING 04/02/2014 MADL SOCCER BALL ASSEMBLER, CLAUDIO L V76.10 BREAST CANCER SCREENING 04/02/2014 MADL SOCCER BALL ASSEMBLER, CLAUDIO L V76.2 CERVICAL CANCER SCREENING (PAP SMEAR) 04/02/2014 MADL SOCCER BALL ASSEMBLER, CLAUDIO L V76.51 COLON CANCER SCREENING 04/02/2014 MADL SOCCER BALL ASSEMBLER, CLAUDIO L V82.81 SPECIAL SCREENING FOR OSTEOPOROSIS 04/02/2014 MADL SOCCER BALL ASSEMBLER, CLAUDIO L V72.31 INTELLIGENCE CHIEF EXAM, ROUTINE 04/02/2014 MADL SOCCER BALL ASSEMBLER, CLAUDIO L V73.81 HPV SCREENING 04/02/2014 MADL SOCCER BALL ASSEMBLER, CLAUDIO L V76.10 BREAST CANCER SCREENING 04/02/2014 MADL SOCCER BALL ASSEMBLER, CLAUDIO L V76.2 CERVICAL CANCER SCREENING (PAP SMEAR) 04/02/2014 MADL SOCCER BALL ASSEMBLER, CLAUDIO L V76.51 COLON CANCER SCREENING 04/02/2014 MADL SOCCER BALL ASSEMBLER, CLAUDIO L V82.81 SPECIAL SCREENING FOR OSTEOPOROSIS 04/30/2014 SKYE REID DO 719.41 PAIN IN JOINT INVOLVING SHOULDER REGION 04/30/2014 MADL SOCCER BALL ASSEMBLER, CLAUDIO L 719.41 PAIN IN JOINT INVOLVING SHOULDER REGION 04/30/2014 MADL SOCCER BALL ASSEMBLER, CLAUDIO L 719.41 PAIN IN JOINT INVOLVING SHOULDER REGION 04/30/2014 INO SEGAL APRN 719.41 PAIN IN JOINT INVOLVING SHOULDER REGION 04/30/2014 MADL SOCCER BALL ASSEMBLER, CLAUDIO L 719.41 PAIN IN JOINT INVOLVING SHOULDER REGION 04/30/2014 MADL SOCCER BALL ASSEMBLER, CLAUDIO L 719.41 PAIN IN JOINT INVOLVING SHOULDER REGION 04/30/2014 MADL SOCCER BALL ASSEMBLER, CLAUDIO L 719.41 PAIN IN JOINT INVOLVING SHOULDER REGION 04/30/2014 MADL SOCCER BALL ASSEMBLER, CLAUDIO L 719.41 PAIN IN JOINT INVOLVING SHOULDER REGION 05/18/2014 MADL SOCCER BALL ASSEMBLER, CLAUDIO L 214.1 LIPOMA OF OTHER SKIN AND SUBCUTANEOUS TISSUE 05/18/2014 MADL SOCCER BALL ASSEMBLER, CLAUDIO L 214.1 LIPOMA OF OTHER SKIN AND SUBCUTANEOUS TISSUE 05/18/2014 INO SEGAL APRN 214.1 LIPOMA OF OTHER SKIN AND SUBCUTANEOUS TISSUE 05/18/2014 MADL SOCCER BALL ASSEMBLER, CLAUDIO L 214.1 LIPOMA OF OTHER SKIN AND SUBCUTANEOUS TISSUE 05/18/2014 MADL SOCCER BALL ASSEMBLER, CLAUDIO L 214.1 LIPOMA OF OTHER SKIN AND SUBCUTANEOUS TISSUE 05/18/2014 CAMERONL SOCCER BALL ASSEMBLER, CLAUDIO L 214.1 LIPOMA OF OTHER SKIN AND SUBCUTANEOUS TISSUE 05/18/2014 TORO SOCCER BALL ASSEMBLER, CLAUDIO L 214.1 LIPOMA OF OTHER SKIN AND SUBCUTANEOUS TISSUE 06/01/2014 CAMERONL SOCCER BALL ASSEMBLER, CLAUDIO L 250.00 DIABETES MELLITUS WITHOUT MENTION OF COMPLICATION TYPE II OR UNSPECIFIED TYPE NOT STATED UNCONTROLLED 06/01/2014 TORO NUGENTN, CLAUDIO L 686.8 OTHER SPECIFIED LOCAL INFECTIONS OF SKIN AND SUBCUTANEOUS TISSUE 06/01/2014 INO SEGAL APRN T 250.00 DIABETES MELLITUS WITHOUT MENTION OF COMPLICATION TYPE II OR UNSPECIFIED TYPE NOT STATED UNCONTROLLED 06/01/2014 INO SEGAL APRN T 686.8 OTHER SPECIFIED LOCAL INFECTIONS OF SKIN AND SUBCUTANEOUS TISSUE 06/01/2014 TORO SOCCER BALL ASSEMBLER, CLAUIDO L 250.00 DIABETES MELLITUS WITHOUT MENTION OF COMPLICATION TYPE II OR UNSPECIFIED TYPE NOT STATED UNCONTROLLED 06/01/2014 TORO NUGENTN, CLAUDIO L 686.8 OTHER SPECIFIED LOCAL INFECTIONS OF SKIN AND SUBCUTANEOUS TISSUE 06/01/2014 TORO NUGENTN, CLAUDIO L 250.00 DIABETES MELLITUS WITHOUT MENTION OF COMPLICATION TYPE II OR UNSPECIFIED TYPE NOT STATED UNCONTROLLED 06/01/2014 TORO SOCCER BALL ASSEMBLER, CLAUDIO L 686.8 OTHER SPECIFIED LOCAL INFECTIONS OF SKIN AND SUBCUTANEOUS TISSUE 06/01/2014 CAMERONL SOCCER BALL ASSEMBLER, CLAUDIO L 250.00 DIABETES MELLITUS WITHOUT MENTION OF COMPLICATION TYPE II OR UNSPECIFIED TYPE NOT STATED UNCONTROLLED 06/01/2014 MADL SOCCER BALL ASSEMBLER, CLAUDIO L 686.8 OTHER SPECIFIED LOCAL INFECTIONS OF SKIN AND SUBCUTANEOUS TISSUE 06/01/2014 CAMERONL SOCCER BALL ASSEMBLER, CLAUDIO L 250.00 DIABETES MELLITUS WITHOUT MENTION OF COMPLICATION TYPE II OR UNSPECIFIED TYPE NOT STATED UNCONTROLLED 06/01/2014 MADL SOCCER BALL ASSEMBLER, CLAUDIO L 686.8 OTHER SPECIFIED LOCAL INFECTIONS OF SKIN AND SUBCUTANEOUS TISSUE 06/09/2014 INO SEGAL APRN T 054.9 HERPES SIMPLEX ANY SITE 06/09/2014 INO SEGAL APRN T 782.1 RASH 06/09/2014 TORO MCNEIL, CLAUDIO L 054.9 HERPES SIMPLEX ANY SITE 06/09/2014 KELLIE ENGEL APRNA L 782.1 RASH 06/09/2014 MADL SOCCER BALL ASSEMBLER, CLAUDIO L 054.9 HERPES SIMPLEX ANY SITE 06/09/2014 MADL SOCCER BALL ASSEMBLER, CLAUDIO L 782.1 RASH 06/09/2014 MADL SOCCER BALL ASSEMBLER, CLAUDIO L 054.9 HERPES SIMPLEX ANY SITE 06/09/2014 MADL SOCCER BALL ASSEMBLER, CLAUDIO L 782.1 RASH 06/09/2014 MADL SOCCER BALL ASSEMBLER, CLAUDIO L 054.9 HERPES SIMPLEX ANY SITE 06/09/2014 MADL SOCCER BALL ASSEMBLER, CLAUDIO L 782.1 RASH 06/29/2014 MADL SOCCER BALL ASSEMBLER, CLAUDIO L 278.02 OVERWEIGHT 06/29/2014 MADL SOCCER BALL ASSEMBLER, CLAUDIO L 564.00 CONSTIPATION 06/29/2014 MADL SOCCER BALL ASSEMBLER, CLAUDIO L 716.90 ARTHRITIS/ ARTHROPATHY, UNSPECIFIED 06/29/2014 MADL SOCCER BALL ASSEMBLER, CLAUDIO L V58.31 WOUND DRESSING 06/29/2014 MADL SOCCER BALL ASSEMBLER, CLAUDIO L 278.02 OVERWEIGHT 06/29/2014 MADL SOCCER BALL ASSEMBLER, CLAUDIO L 564.00 CONSTIPATION 06/29/2014 MADL SOCCER BALL ASSEMBLER, CLAUDIO L 716.90 ARTHRITIS/ ARTHROPATHY, UNSPECIFIED 06/29/2014 MADL SOCCER BALL ASSEMBLER, CLAUDIO L V58.31 WOUND DRESSING 06/29/2014 MADL SOCCER BALL ASSEMBLER, CLAUDIO L 278.02 OVERWEIGHT 06/29/2014 MADL SOCCER BALL ASSEMBLER, CLAUDIO L 564.00 CONSTIPATION 06/29/2014 MADL SOCCER BALL ASSEMBLER, CLAUDIO L 716.90 ARTHRITIS/ ARTHROPATHY, UNSPECIFIED 06/29/2014 MADL SOCCER BALL ASSEMBLER, CLAUDIO L V58.31 WOUND DRESSING 06/29/2014 MADL SOCCER BALL ASSEMBLER, CLAUDIO L 278.02 OVERWEIGHT 06/29/2014 MADL SOCCER BALL ASSEMBLER, CLAUDIO L 564.00 CONSTIPATION 06/29/2014 MADL SOCCER BALL ASSEMBLER, CLAUDIO L 716.90 ARTHRITIS/ ARTHROPATHY, UNSPECIFIED 06/29/2014 MADL SOCCER BALL ASSEMBLER, CLAUDIO L V58.31 WOUND DRESSING 10/26/2014 MADL SOCCER BALL ASSEMBLER, CLAUDIO L 461.9 SINUSITIS ACUTE 11/02/2014 CLAUDIO ENGEL APRN 461.9 SINUSITIS ACUTE 04/28/2015 TAMMIE ESTEVEZ APRN Ot V76.12 05/05/2015 CLAUDIO ENGEL FIELD MARKETING MANAGER Ot Z12.31 05/05/2015 CLAUDIO ENGEL FIELD MARKETING MANAGER Ot Z12.31 05/20/2015 CLAUDIO ENGEL FIELD MARKETING MANAGER Ot Z12.31 09/20/2015 PORFIRIO ALSTON DOA Minoo Ot L50.0 ALLERGIC URTICARIA 12/09/2015 FABRICE ADEN, LEORA D Ot L50.0 ALLERGIC URTICARIA 12/09/2015 FABRICE ADEN, LEORA D Ot L50.0 ALLERGIC URTICARIA 07/24/2016 CLAUDIO ENGEL FIELD MARKETING MANAGER Ot Z12.31 ENCNTR SCREEN MAMMOGRAM FOR MALIGNANT NE 08/11/2016 CLAUDIO ENGEL FIELD MARKETING MANAGER Ot Z12.31 ENCNTR SCREEN MAMMOGRAM FOR MALIGNANT NE 08/21/2016 CLAUDIO ENGEL FIELD MARKETING MANAGER Ot Z12.31 ENCNTR SCREEN MAMMOGRAM FOR MALIGNANT NE Procedures Code [place] [address] THERAPUTIC INJ SQ/IM 10/24/2012 J1040 DEPO MEDROL 80 MG INJ 10/24/2012 69019 MAMMOGRAM, SCREENING 11/04/2012 56576 BONE DENSITY, DEXA 11/04/2012 26522 ROUTINE VENIPUNCTURE 11/28/2012 93948 A1C (IN-HOUSE) 11/28/2012 19819 CBC 11/28/2012 70674 CMP 11/28/2012 35877 LIPID PANEL 11/28/2012 6843501 GFR CALC (RESULT ONLY) 11/28/2012 67032 TSH 11/28/2012 48389 VITAMIN D 25-HYDROXY (D2,D3 , TOTAL) 11/28/2012 42320 A1C (IN-HOUSE) 04/16/2013 G0008 FLU ADMINISTRATION ( MEDICARE ONLY) 04/16/2013 37080 ROUTINE VENIPUNCTURE 10/20/2013 81551 MAMMOGRAM, SCREENING 10/20/2013 1532989 GFR CALC (RESULT ONLY) 10/20/2013 14097 CMP 10/20/2013 59362 LIPID PANEL 10/20/2013 J1100 DEXAMETHASONE SODIUM PHOS, 1 MG 10/23/2013 93626 BONE MINERAL DENSITY, HEEL US (IN HOUSE) 04/02/2014 81154 MAMMOGRAM, SCREENING 04/02/2014 Q0091 PAP SMEAR OBTAIN SMEAR 04/02/2014 59782 PAP SMEAR 04/07/2014 36765 HEMOCCULT 04/08/2014 61339 XRAY HIP RIGHT UNILATERAL MIN 2 VIEWS 04/30/2014 41226 ROUTINE VENIPUNCTURE 05/18/2014 G0008 FLU ADMINISTRATION ( MEDICARE ONLY) 05/18/2014 03850 A1C (IN-HOUSE) 05/18/2014 42929 CMP 05/18/2014 25158 LIPID PANEL 05/18/2014 7002478 GFR CALC (RESULT ONLY) 05/18/2014 51627 CBC 05/18/2014 85464 VITAMIN D 25-HYDROXY (D2,D3 , TOTAL) 05/18/2014 ORTHOPRISSA FERNANDEZ 06/09/2014 GENERAL S MARCELA MCGINNIS 11/02/2014 Results There is no data. Encounters ACCT No. Visit Date/Time Discharge Status Pt. Type Provider Facility Loc./Unit Complaint [id number] 11/02/2014 12:27:00 11/02/2014 23:59:59 CLS Outpatient CLAUDIO ENGEL APRN [id number] 10/26/2014 08:44:00 10/26/2014 23:59:59 CLS Outpatient CAMERONCLAUDIO Marmolejo APRN [id number] 08/03/2014 08:32:00 08/03/2014 23:59:59 CLS Outpatient CLAUDIO ENGEL APRN L [id number] 06/29/2014 08:26:00 06/29/2014 23:59:59 CLS Outpatient CLAUDIO ENGEL APRN L [id number] 06/09/2014 14:08:00 06/09/2014 23:59:59 CLS Outpatient INO SEGAL APRN [id number] 06/01/2014 10:14:00 06/01/2014 23:59:59 CLS Outpatient CLAUDIO ENGEL APRN [id number] 05/18/2014 09:16:00 05/18/2014 23:59:59 CLS Outpatient CLAUDIO ENGEL APRN L [id number] 04/30/2014 08:19:00 04/30/2014 23:59:59 CLS Outpatient SKYE REID DO [id number] 04/02/2014 08:21:00 04/02/2014 23:59:59 CLS Outpatient TAMMIE ESTEVEZ APRN [id number] 10/23/2013 14:44:00 10/23/2013 23:59:59 CLS Outpatient FRANKLIN ULRICH SKYE Hennessy [id number] 10/23/2013 14:44:00 10/23/2013 23:59:59 CLS Outpatient FRANKLIN ULRICH SKYE Hennessy [id number] 10/20/2013 09:02:00 10/20/2013 23:59:59 CLS Outpatient FISH JENKINS MD [id number] 07/21/2013 14:06:00 07/21/2013 23:59:59 CLS Outpatient TERRI DICKEY APRN [id number] 04/16/2013 15:30:00 04/16/2013 23:59:59 CLS Outpatient FISH JENKINS MD [id number] 07/03/2012 08:01:00 07/03/2012 23:59:59 CLS Outpatient [id number] 01/08/2013 07:54:00 Document Registration [id number] 11/28/2012 08:50:00 Document Registration [id number] 10/24/2012 14:45:00 Document Registration [id number] 06/25/2017 05:52:00 06/25/2017 11:56:00 DIS Outpatient ANDRES HELLER MD [facility] PREOP COLONOSCOPY [id number] 06/13/2017 10:43:00 06/13/2017 23:59:59 CLS Outpatient MADL, CLAUDIO L FIELD MARKETING MANAGER [facility] RAD Z78.0 POSTMENOPAUSAL [id number] 07/21/2016 09:41:00 07/21/2016 23:59:59 CLS Outpatient MADL, CLAUDIO L FIELD MARKETING MANAGER [facility] RAD SCREENING [id number] 12/09/2015 03:07:00 12/09/2015 03:56:00 DIS Emergency LEORA AVINA MD [facility] ER [id number] 09/20/2015 01:48:00 09/20/2015 02:41:00 DIS Emergency XUAN ALSTON DO [facility] ER [id number] 04/28/2015 09:18:00 04/28/2015 23:59:59 CLS Outpatient CLADUIO ENGEL [facility] RAD [id number] 04/09/2014 11:01:00 04/09/2014 23:59:59 CLS Outpatient TAMMIE ESTEVEZ APRN [facility] RAD [id number] 11/29/2012 08:49:00 11/29/2012 23:59:59 CLS Outpatient [id number] 06/29/2017 11:58:00 ACT Outpatient ANDRES HELLER MD [facility] ENDO SCREENING
--- NOTE | 2017-06-29 12:11 | Conscious Sedation/ASA ---
Conscious Sedation Pre-Proced Time Reviewed: 12:00 ASA Class: 2 Airway Mallampati Classification: ([place] appropriate class) I. II. III, IV Lungs Heart ASA score ASA 1: a normal healthy patient ASA 2: a patient with a mild systemic disease (mid diabetes, controlled hypertension, obesity ASA 3: a patient with a severe systemic disease that limits activity (angina , COPD, prior Myocardial infarction) ASA 4: a patient with an incapacitating disease that is a constant threat to life (CHF, renal failure) ASA 5: a moribund patient not expected to survive 24 hrs. (ruptured aneurysm) ASA 6: a declared brain patient whose organs are being harvested. For emergent operations, add the letter E after the classification Grade 2 Sedation Plan: Analgesia, Amnesia, Plan communicated to team members, Discussed options with patient/fam, Discussed risks with patient/fam Note The patient is an appropriate candidate to undergo the planned procedure, sedation, and anesthesia. The patient immediately re-assessed prior to indication. ANDRES HELLER MD Jun 29, 2017 12:11 pm
--- NOTE | 2017-06-29 12:12 | Progress Note-Pre Operative ---
Pre-Operative Progress Note H&P Reviewed The H&P was reviewed, patient examined and no changes noted. Date Seen by Provider: Jun 29, 2017 Time Seen by Provider: 12:00 Date H&P Reviewed: Jun 29, 2017 Time H&P Reviewed: 12:00 Pre-Operative Diagnosis: screening colonoscopy ANDRES HELLER MD Jun 29, 2017 12:12 pm
[2017-06-29] MEDS ORDERED: ACETAMINOPHEN 325 MG TABLET/CAPLET (TYLENOL) PO PRN (12:15)
[2017-06-29] MEDS ORDERED: morphine INJ 10 MG/ML 1ML (SYR OR VIAL) IV PRN (12:15)
[2017-06-29] MEDS ORDERED: HYDROcodone/APAP 5 MG/325 MG (LORTAB) TAB PO PRN (12:15)
[2017-06-29] MEDS ORDERED: ONDANSETRON 4 MG/2 ML (SDV) Z0FRAN IV PRN (12:15)
[2017-06-29] MEDS ORDERED: LIDOCAINE JELLY 2% (XYLOCAINE) 5 ML TUBE ONE (12:39)
[2017-06-29] MEDS ORDERED: MIDAZOLAM 2 MG/2 ML (VERSED) VIAL ONE ×3 (12:39)
[2017-06-29] MEDS ORDERED: fentaNYL INJECTION 100 MCG/2 ML AMP ONE (12:39)
[2017-06-29 12:42] VITALS: BP 140/81
[2017-06-29] MEDS: MIDAZOLAM 2 MG/2 ML (VERSED) VIAL IVP PRN ×3 (12:45→12:55)
[2017-06-29] MEDS: fentaNYL INJECTION 100 MCG/2 ML AMP IVP PRN ×2 (12:46→12:51)
--- NOTE | 2017-06-29 13:37 | Progress Note-Post Operative ---
Post-Operative Progess Note Surgeon (s)/Lithographers Printer (s) Surgeon ANDRES HELLER MD Lithographers Printer: none Pre-Operative Diagnosis screening colonoscopy Post-Operative Diagnosis rectal lesion Procedure & Operative Findings Date of Procedure 06/29/17 Procedure Performed/Findings Colonoscopy with bx. Anesthesia Type CS Estimated Blood Loss Estimated blood loss (mL): minimal Specimens/Packing Specimens Removed rectal lesion ANDRES HELLER MD Jun 29, 2017 1:37 pm
--- NOTE | 2017-06-29 13:39 | Discharge Inst-Surgical ---
D/C Lap Instructions-PINA will call for Follow up. Activity as tolerated High Fiber Diet 25g or more per day Avoid Alcohol, Caffeine, Spicy [place] and Acid foods. Drink 64 fluid oz or more of fluids per day. Symptoms to Report: Fever over 101 degree F, Nausea/Vomiting If any problems/questions: Contact your physician or go to Emergency Room ANDRES HELLER MD Jun 29, 2017 1:39 pm
[2017-06-29 13:40] VITALS: BP 117/76
[2017-06-29] MEDS ORDERED: LIDOCAINE JELLY 2% (XYLOCAINE) 5 ML TUBE TOP ONE (14:00)
[2017-06-29 14:10] VITALS: BP 120/74
[2017-06-29 14:46] VITALS: BP 120/74
--- NOTE | 2017-06-29 22:35 | OPERATIVE REPORT ---
DATE OF SERVICE: 06/29/2017 ATTENDING MUSIC COMPOSITION TEACHER: Yajaira Larson APRN. PREOPERATIVE DIAGNOSIS: Screening colonoscopy. POSTOPERATIVE DIAGNOSIS: Small lesion of the rectum, which appeared to be more consistent with a benign submucosal lipoma. The remainder of the colon was normal. PROCEDURE: Colonoscopy with biopsy. SURGEON: Dr. Heller. ANESTHESIA: Conscious sedation. ESTIMATED BLOOD LOSS: Minimal. FINDINGS: No significant hemorrhoids. There was a rectal lesion, which did not appear to be a classic polyp; however, more of a submucosal, easily movable lesion, more consistent with a lipoma. The remainder of the colon was normal. DISPOSITION: The patient tolerated the procedure well. INDICATIONS FOR PROCEDURE: The patient is a 67-year-old female, in need of a screening colonoscopy. She has not had a colonoscopy up to this point in her life. She is doing well for the most part and does not report any major issues with diarrhea nor constipation as well as no red blood per rectum nor any dark, tarry stools. She reports that her brother was diagnosed with some form of intra-abdominal cancer at around age 71; however, is unsure of what specific type. DESCRIPTION OF PROCEDURE: The patient was brought to the endoscopy suite, laid in the left lateral decubitus position. After adequate IV pain and sedative medications and conscious sedation anesthesia, a digital rectal examination was performed. No significant hemorrhoids identified. Normal sphincter tone was felt and there were no palpable masses. The endoscope was then intubated to the anus and rectum gently insufflated. The endoscope was then advanced to the valves of Gutiérrez of the rectum. At the level of the rectum was a lesion, which appeared to be submucosal, approximately 5 mm in size and easily movable and did not have the characteristics of a mucosal polyp; however, more of a submucosal lesion and consistent with a lipoma. This was biopsied using forceps and electrocautery with visualization of good hemostasis. The endoscope was then advanced through the sigmoid colon where no diverticulosis identified. The endoscope was then advanced to the remainder of the descending, transverse and ascending colon to the cecum. These segments were normal. The endoscope was then slowly withdrawn while taking a second look at suctioning of residual air with no additional findings. The patient tolerated the procedure well. We will await the biopsy results. We will also recommend continued medical management with a high-fiber diet. If this lesion is completely benign, she may wait another 10 years before a next colonoscopy. Job ID: [id number] DocumentID: [id number] Dictated Date: 06/29/2017 13:34:22 Channel Sales Manager Date: 06/29/2017 22:33:40 Dictated By: ANDRES HELLER MD MTDD
== END 2017-06-29 14:45 | disposition home or self-care (01) ==
LOC: ENDO 11:58
PROVIDERS: ATTEND Surgery
DX: Z12.11 Encounter for screening for malignant neoplasm of colon (principal); K62.9 Disease of anus and rectum, unspecified; E03.9 Hypothyroidism, unspecified; M19.91 Primary osteoarthritis, unspecified site; Z79.899 Other long term (current) drug therapy; Z80.0 Family history of malignant neoplasm of digestive organs

== ENCOUNTER → 2017-08-07 | Outpatient (CLI) | payer MEDICARE, MEDICAID ==
--- NOTE | 2017-08-07 11:08 | Diagnostic Imaging Report ---
INDICATION: Routine screening. Comparison is made with prior exam from 07/21/2016 and 04/28/2015. The current study was also evaluated with a Computer Aided Detection (CAD) system. FINDINGS: Both breasts again show significant parenchymal heterogeneity and increased density, limiting sensitivity of mammography. Biopsy clip with adjacent calcifications in the right breast appear stable. No dominant mass or malignant appearing microcalcifications are seen. The axillae are unremarkable. IMPRESSION: No mammographic features suspicious for malignancy are identified. ACR BI-RADS Category 2: Benign findings. Result letter will be mailed to the patient. Note: At least 10% of breast cancer is not imaged by mammography. Dictated by: Dictated on workstation # [id number]
== END ==
LOC: RAD 08:47
PROVIDERS: ATTEND Nurse Practitioner Family
DX: Z12.31 Encounter for screening mammogram for malignant neoplasm of breast (principal)
CPT/HCPCS: 77067

== ENCOUNTER 2018-07-09 10:46 | Emergency (ER) | payer MEDICARE, MEDICAID ==
[2018-07-09] MEDS ORDERED: AZIT250T12 PO (11:12)
[2018-07-09] MEDS ORDERED: ACET-789 PO (11:12)
--- NOTE | 2018-07-09 11:12 | ED Cough/URI ---
General Stated Complaint: COUGH;CONGESTION Source: patient Exam Limitations: no limitations History of Present Illness Date Seen by Provider: Jul 09, 2018 Time Seen by Provider: 11:09 Initial Comments To ER with a four-day history of productive cough, unable to sleep at night due to the cough, no fevers, mild body aches. Slight rhinorrhea no sore throat. Timing/Duration: other (four-day history) Severity/Quality: productive cough Associated Symptoms: cough, muscle aches Allergies and Home Medications Allergies Coded Allergies: No Known Drug Allergies (Unverified , 06/25/17) Home Medications No Active Prescriptions or Reported Meds Patient Home Medication List Home Medication List Reviewed: Yes Review of Systems Review of Systems Constitutional: see HPI; No chills, No fever EENTM: nose congestion Respiratory: see HPI, cough Cardiovascular: no symptoms reported Genitourinary: no symptoms reported Musculoskeletal: no symptoms reported Skin: no symptoms reported Psychiatric/Neurological: No Symptoms Reported Past Quwweyv-Zamjnz-Mpmpxt Hx Patient Social History Recent Hopitalizations: No Immunizations Up To Date Date of Influenza Vaccine: Mar 26, 2017 Seasonal Allergies Seasonal Allergies: No Past Medical History Reproductive Disorders: No Female Reproductive Disorders: Denies Sexually Transmitted Disease: No HIV/AIDS: No Gastroesophageal Reflux Arthritis Loss of Vision: Denies Hearing Impairment: Denies Adverse Reaction/Blood Tranf: No (N/A) Physical Exam Capillary Refill : Height: 5'0.00" Weight: 134lbs. 0.0oz. 60.956481tt; 26.2 BMI Method:Stated General Appearance: WD/WN, no apparent distress Eyes: Bilateral Eye Normal Inspection, Bilateral Eye PERRL, Bilateral Eye EOMI HEENT: PERRL/EOMI, normal ENT inspection, TMs normal, pharynx normal Neck: non-tender, full range of motion Respiratory: lungs clear, normal breath sounds, no respiratory distress, no accessory muscle use; No crackles, No rales, No rhonchi, No stridor, No wheezing Gastrointestinal: normal bowel sounds, non tender, soft Neurologic/Psychiatric: alert, normal mood/affect, oriented x 3 Skin: normal color, warm/dry Progress/Results/Core Measures Suspected Sepsis SIRS Temperature: Pulse: Respiratory Rate: Blood Pressure / Mean: Results/Orders My Orders Orders - GERALDO ARAUZ APRN Azithromycin Tablet (Zithromax Tablet) (07/09/18 11:15) Rx-Acetaminophen/Codeine (Rx-Tylenol #3) (07/09/18 21:00) Vital Signs/I&O Capillary Refill : Departure Impression Primary Impression: Bronchitis Disposition: 01 HOME, SELF-CARE Condition: Stable Departure-Patient Inst. Decision time for Depature: 11:10 Referrals: SKYE REID DO (PCP) Primary Care Physician CLAUDIO ENGEL (Family) Primary Care Physician Patient Instructions: Acute Bronchitis in Adults Add. Discharge Instructions: 1. Take the cough medication at bedtime and every 4 hours as needed for cough 2. Antibiotics as directed. Scripts Acetaminophen with Codeine (Tylenol with Codeine #3 Tablet) 1 Each Tablet 1 EACH PO Q4H PRN for cough, #10 TAB Prov: GERALDO ARAUZ APRN 07/09/18 Azithromycin (Azithromycin) 250 Mg Tablet 250 MG PO DAILY, #4 TAB Prov: GERALDO ARAUZ APRN 07/09/18 GERALDO ARAUZ APRN Jul 09, 2018 11:12
[2018-07-09] MEDS ORDERED: AZITHROMYCIN 250 MG TAB (ZITHROMAX) PO SCH (11:15)
[2018-07-09] MEDS ORDERED: RX-ACETAMINOPHEN/CODEINE TAB PPK #4 ONE (11:24)
[2018-07-09] MEDS ORDERED: RX-ACETAMINOPHEN/CODEINE TAB PPK #4 PO SCH (21:00)
== END 2018-07-09 11:34 | disposition home or self-care (01) ==
LOC: EDUNIT# 10:46 → ER 10:47
DX: J40 Bronchitis, not specified as acute or chronic (principal); K21.9 Gastro-esophageal reflux disease without esophagitis

== ENCOUNTER 2019-11-30 22:08 | Emergency (ER) | payer MEDICARE, MEDICAID ==
[~2019-11-30] VITALS: Ht 152 cm; Wt 65.0 kg
[~2019-11-30 22:08] MED LIST changes: +ACET-789 PO; +AZIT250T12 PO
[2019-11-30 23:19] LABS: BILIRUBIN,URINE NEGATIVE (NEGATIVE); CLARITY,URINE CLEAR; COLOR,URINE YELLOW; GLUCOSE, URINE (UA) NEGATIVE (NEGATIVE); KETONES,URINE NEGATIVE (NEGATIVE); LEUKOCYTE ESTERASE ,URINE 1+ (NEGATIVE); NITRITE,URINE NEGATIVE (NEGATIVE); PROTEIN,URINE NEGATIVE (NEGATIVE)
[2019-11-30 23:26] LABS: BACTERIA,URINE FEW /HPF; SQUAMOUS EPITHELIAL CELL,UR RARE /HPF
[2019-11-30] MEDS ORDERED: HYOSCYAMINE 0.125 MG (LEVSIN) TAB SL ONE (23:45)
[2019-12-01] MEDS ORDERED: CEPHALEXIN 250 MG (KEFLEX) CAP PO ONE
[2019-12-01] MEDS ORDERED: POLY119P5 PO (00:03)
[2019-12-01] MEDS ORDERED: CEPH-507 PO (00:03)
--- NOTE | 2019-12-01 00:03 | ED General ---
General Chief Complaint: - Urinary Stated Complaint: UNABLE TO URINATE, PELVIC PAIN Nursing Triage Note: TO ED VIA POV AND AMBULATORY TO ROOM 5 WITH C/O PAIN WITH URINATION AND TROUBLE VOIDING AT TIMES. ALSO STATES FEELS LIKE ABD IS SWOLLEN. Nursing Sepsis Screen: No Definite Risk Source of Information: Patient Exam Limitations: No Limitations History of Present Illness Date Seen by Provider: November 30, 2019 Time Seen by Provider: 22:57 Initial Comments This 69-year-old woman presents to the emergency room with complaints of dysuria and sensation of inability to void. She also reports not having any bowel movements in 2 days and feeling bloated. She denies any vomiting, diarrhea, hematuria, or fever. Allergies and Home Medications Allergies Coded Allergies: No Known Drug Allergies (Unverified , 06/25/17) Home Medications Acetaminophen with Codeine 1 Each Tablet, 1 EACH PO Q4H PRN for cough Prescribed by: GERALDO ARAUZ on 07/09/18 1112 Azithromycin 250 Mg Tablet, 250 MG PO DAILY Prescribed by: GERALDO ARAUZ on 07/09/18 1112 Cephalexin 500 Mg Capsule, 500 MG PO BID Prescribed by: SANDY BLAKE on 12/01/19 0003 Polyethylene Glycol 3350 119 Gm Powder, 17 GM PO BID PRN for CONSTIPATION-1ST LINE Prescribed by: SANYD BLAKE on 12/01/19 0003 Patient Home Medication List Home Medication List Reviewed: Yes Review of Systems Review of Systems Constitutional: no symptoms reported EENTM: no symptoms reported Respiratory: no symptoms reported Cardiovascular: no symptoms reported Gastrointestinal: see HPI Genitourinary: see HPI : No Musculoskeletal: no symptoms reported Skin: no symptoms reported Psychiatric/Neurological: No Symptoms Reported Hematologic/Lymphatic: No Symptoms Reported Immunological/Allergic: no symptoms reported Past Xdkerep-Egxcke-Adajwl Hx Past Med/Social Hx: Reviewed Nursing Past Med/Soc Hx Patient Social History Alcohol Use: Denies Use Recreational Drug Use: No Smoking Status: Former Smoker Recent Foreign Travel: No Contact w/Someone Who Travel: No Recent Infectious Disease Expo: No Recent Hopitalizations: No Physical Abuse: No Sexual Abuse: No Mistreated: No Fear: No Immunizations Up To Date Date of Influenza Vaccine: Mar 26, 2017 Seasonal Allergies Seasonal Allergies: No Past Medical History Surgeries: No Respiratory: No Cardiac: Yes High Cholesterol Neurological: No Reproductive Disorders: No Female Reproductive Disorders: Denies Sexually Transmitted Disease: No HIV/AIDS: No Genitourinary: No Gastrointestinal: Yes Gastroesophageal Reflux Musculoskeletal: Yes Arthritis Endocrine: Yes Hypothyroidsim, Diabetes, Non-Insulin dep Loss of Vision: Denies Hearing Impairment: Denies Cancer: No Psychosocial: No Integumentary: No Blood Disorders: No Adverse Reaction/Blood Tranf: No (N/A) Physical Exam Vital Signs Vital Signs - First Documented 11/30/19 12/01/19 23:05 00:22 Temp 36.6 Pulse 90 Resp 16 B/P (MAP) 143/114 (124) Pulse Ox 95 O2 Delivery Room Air Capillary Refill : Less Than 3 Seconds Height, Weight, BMI Height: 5'0.00" Weight: 134lbs. 0.0oz. 60.650555xs; 28.00 BMI Method:Stated General Appearance: No Apparent Distress, WD/WN HEENT: PERRL/EOMI, Normal ENT Inspection Neck: Normal Inspection Respiratory: Lungs Clear, Normal Breath Sounds, No Accessory Muscle Use Cardiovascular: Regular Rate, Rhythm, No Edema, No Murmur Gastrointestinal: Normal Bowel Sounds, Non Tender, Soft Extremity: Normal Inspection, No Pedal Edema Neurologic/Psychiatric: Alert, Oriented x3, No Motor/Sensory Deficits, Normal Mood/Affect, human anatomy teacher II-XII Norm as Tested Skin: Normal Color, Warm/Dry Progress/Results/Core Measures Suspected Sepsis Recent Fever Within 48 Hours: No Infection Criteria Present: Suspected New Infection New/Unexplained Altered Menta: No Sepsis Screen: No Definite Risk SIRS Temperature: Pulse: 90 Respiratory Rate: Blood Pressure 143 /114 Mean: 124 Results/Orders Lab Results Laboratory Tests Test 11/30/19 23:10 Range/Units Urine Color YELLOW Urine Clarity CLEAR Urine pH 6.0 5-9 Urine Specific [place] 1.025 H 1.016-1.022 Urine Protein NEGATIVE NEGATIVE Urine Glucose (UA) NEGATIVE NEGATIVE Urine Ketones NEGATIVE NEGATIVE Urine Nitrite NEGATIVE NEGATIVE Urine Bilirubin NEGATIVE NEGATIVE Urine Urobilinogen 0.2 < = 1.0 MG/DL Urine Leukocyte Esterase 1+ H NEGATIVE Urine RBC (Auto) NEGATIVE NEGATIVE Urine RBC 10-25 H /HPF Urine WBC 2-5 /HPF Urine Squamous Epithelial Cells RARE /HPF Urine Crystals NONE /LPF Urine Bacteria FEW H /HPF Urine Casts NONE /LPF Urine Mucus NEGATIVE /LPF Urine Culture Indicated YES My Orders Orders - SANDY DRISCOLL MD Ua Culture If Indicated (11/30/19 22:11) Bladder Scan (11/30/19 23:04) Abdomen, Flat & Upright/Decub (11/30/19 23:04) Urine Culture (11/30/19 23:10) Hyoscyamine Sl Tablet (Levsin Sl Tablet) (11/30/19 23:45) Cephalexin Capsule (Keflex Capsule) (12/01/19 00:00) Medications Given in ED Current Medications Medications Dose Ordered Sig/Dimas Route Start Time Stop Time Status Last Admin Dose Admin Cephalexin HCl 500 mg ONCE ONCE PO 12/01/19 00:00 12/01/19 00:01 DC 12/01/19 00:03 500 MG Hyoscyamine Sulfate 0.125 mg ONCE ONCE SL 11/30/19 23:45 11/30/19 23:46 DC 12/01/19 00:03 0.125 MG Vital Signs/I&O 11/30/19 12/01/19 23:05 00:22 Temp 36.6 36.6 Pulse 90 83 Resp 16 B/P (MAP) 143/114 (124) 127/87 (124) Pulse Ox 95 O2 Delivery Room Air Room Air Capillary Refill : Less Than 3 Seconds Blood Pressure Mean: 124 Progress Note : Progress Note Urinalysis was subtly suggestive of urinary tract infection. Patient was treated with Keflex. Levsin was given for bladder spasm. X-ray was suggestive of constipation. Discharge instructions reviewed with patient. Diagnostic Imaging Diagonstic Imaging: Xray Plain Films/CT/US/NM/MRI: abdomen, pelvis Comments KUB and upright x-rays demonstrated no evidence of obstruction. There was a significant colonic stool burden suggestive of constipation. Report not yet available. Departure Impression Primary Impression: Urinary tract infection Qualified Codes: N39.0 - Urinary tract infection, site not specified Additional Impressions: Constipation Qualified Codes: K59.00 - Constipation, unspecified Dysuria Disposition: HOME, SELF-CARE Condition: Improved Departure-Patient Inst. Decision time for Depature: 00:00 Referrals: SKYE REID DO (PCP) Primary Care Physician CLAUDIO ENGEL (Family) Primary Care Physician Patient Instructions: Urinary Tract Infection, Adult (DC), Constipation in Adults Add. Discharge Instructions: Drink plenty of water. Complete your antibiotics as prescribed. Follow-up with your primary care provider middle of the week to review urine culture results. Consume primarily a clear liquid diet until you have a good bowel movement. The n eat plenty of fruits, vegetables, and whole grains as you advance your diet. You may use Tylenol (acetaminophen) up to 1000 mg every 6 hours as needed for pain. Use MiraLAX (polyethylene glycol) twice a day until you produce a good bowel movement. Fill the cap to the line and dissolve the powder in about 12 ounces of liquid. Return to care if you have any other problems or concerns or if your symptoms worsen. All discharge instructions reviewed with patient and/or family. Voiced understanding. Scripts Polyethylene Glycol 3350 (Miralax) 119 Gm Powder 17 GM PO BID PRN for CONSTIPATION-1ST LINE, #1 EA Prov: SANDY DRISCOLL MD 12/01/19 Cephalexin (Keflex) 500 Mg Capsule 500 MG PO BID, #10 CAP Prov: SANDY DRISCOLL MD 12/01/19 Copy Copies To 1: SKYE REID JOSHUA T MD December 01, 2019 00:03
[2019-12-01 00:22] VITALS: BP 127/87
--- NOTE | 2019-12-01 07:26 | Diagnostic Imaging Report ---
INDICATION: Constipation FINDINGS: Mildly elevated colonic fecal load suggestive of mild colonic constipation. No findings of bowel distention or focal impaction. No evidence for bowel obstruction. IMPRESSION: Elevated colonic fecal load diffusely compatible with a mild generalized constipation without overt obstruction or focal impaction. Dictated by: Dictated on workstation # [id number]
== END 2019-12-01 00:22 | disposition home or self-care (01) ==
LOC: EDUNIT# 22:08 → ER 22:10
DX: N39.0 Urinary tract infection, site not specified (principal); K59.00 Constipation, unspecified; Z87.891 Personal history of nicotine dependence
CPT/HCPCS: 74019; 81000; 87077; 87088; 87186